=== PATIENT | female | born 1935 | race Caucasian/White ===

== ENCOUNTER → 2017-01-17 | Outpatient (CLI) | payer MEDICARE, OTHER ==
[~2017-01-17] MED LIST: ACET325T49 PO; AMLO10TA82 PO; AMLO5TAB2 PO; AMOX500C2 PO; ASP81CT PO; ATR20T PO; BISA5TAB8 PO; BNZ10T PO; BNZ20T PO; BNZ40T PO; BSC10SU PR; CFR250T PO; CLPD75T PO; DCS100C PO; FAMO-106 PO; GBPN300C PO; GLIP10TA13 PO; GLYB5TAB6 PO; HYDR-2890 PO; METO-272 PO; METO-333 PO; MTF500T PO; MTP25TSR PO; MULT1TAB53 PO; MV,C1TAB21 PO; NF-DICLTB PO; NIA500ERT PO; PENI250T4 PO; PNT40TEC PO
--- NOTE | 2017-01-30 09:32 | ECHOCARDIOGRAPHY REPORT ---
PROCEDURE PHYSICIAN: CANDIDO AVERY DATE OF PROCEDURE: 01/17/2017 TWO DIMENSIONAL ECHOCARDIOGRAM REPORT PRIMARY PHYSICIAN: Dr. Guillen OTHER PHYSICIAN: REFERRING PHYSICIAN: ORDERING PHYSICIAN: Dr. Avery INDICATION FOR THE PROCEDURE: 1. Coronary artery disease. 2. Hypertension. 3. Hyperlipidemia. MEASUREMENTS DERIVED VALUES LV DIAMETER (LAX) NORMALS NORMALS Diastolic 3.3 (3.6-5.2) Eject. Fract. (60%+/-6%) Systolic (2.3-3.9) Diastolic Vol. % Shortening (0.22-0.42) Systolic Vol. Aortic Root 3.1 IVS THICKNESS Diastolic 1.4 (0.6-1.1) LVPW THICKNESS Diastolic 1.4 (0.6-1.1) LA DIAMETER Systolic 4 (2.1-3.7) DESCRIPTION: Two-dimensional echocardiography shows mild to moderate concentric left ventricular hypertrophy. There is no pericardial effusion. There is thickening and sclerosis of the aortic valve leaflets. Aortic valve appears to be trileaflet. Mitral and tricuspid valve leaflets show good leaflet excursion. There is no significant pericardial effusion. Doppler imaging shows mild mitral and tricuspid regurgitation. Pulmonary artery systolic pressure is estimated to be 20 to 25 mmHg. There is moderate mitral annular calcification. There is no evidence of any significant mitral stenosis. Mitral inflow is suggestive of grade I diastolic dysfunction of the left ventricle. Peak pressure gradient across the aortic valve is approximately 12 mmHg with a mean gradient of approximately 7 mmHg. The aortic valve area is calculated to be approximately 1.7 sq cm. Inferior vena cava does not appear to be dilated and does seem to have inspiratory collapse. There is no evidence of any significant intracardiac shunt on this transthoracic echocardiographic study. CONCLUSIONS: 1. Well preserved global left ventricular systolic function with an ejection fraction of approximately 60%. 2. Mild to moderate concentric left ventricular hypertrophy. 3. Aortic valve sclerosis without significant aortic stenosis. 4. Mitral annular calcification without evidence of significant mitral stenosis. 5. Mitral and tricuspid regurgitation. 6. Pulmonary artery systolic pressure is estimated to be 20 to 25 mmHg. Job ID: [id number] Dictated Date: 01/29/2017 14:45:11 Cleaning Maid Date: 01/30/2017 09:26:39 / jessica
== END ==
LOC: CARD 13:26
PROVIDERS: ATTEND Internal Medicine Cardiovascular Disease
DX: I25.10 Atherosclerotic heart disease of native coronary artery without angina pectoris (principal); I65.23 Occlusion and stenosis of bilateral carotid arteries; E11.9 Type 2 diabetes mellitus without complications; I10 Essential (primary) hypertension; E78.4 Other hyperlipidemia
CPT/HCPCS: 93306

== ENCOUNTER 2019-08-22 11:11 | Emergency (ER) | payer MEDICARE, OTHER ==
[~2019-08-22] VITALS: Ht 154.9 cm; Wt 80.5 kg
[2019-08-22 11:39] LABS: BASOPHILS # (AUTO) 0.1 10^3/uL (0.0-0.1); BASOPHILS % (AUTO) 1 % (0-10); EOSINOPHILS # (AUTO) 0.2 10^3/uL (0.0-0.3); EOSINOPHILS % (AUTO) 3 % (0-10); HEMATOCRIT 39 % (35-52); HEMOGLOBIN 12.3 G/DL (11.5-16.0); LYMPHOCYTES # (AUTO) 1.7 X 10^3 (1.0-4.0); LYMPHOCYTES % (AUTO) 17 % (12-44); MEAN CORPUSCULAR HGB CONC 31 G/DL (32-36); MEAN CORPUSCULAR VOLUME 94 FL (80-99); MEAN PLATELET VOLUME 11.4 FL (7.4-10.4); MONOCYTES # (AUTO) 0.7 X 10^3 (0.0-1.0); MONOCYTES % (AUTO) 8 % (0-12); NEUTROPHILS % (AUTO) 72 % (42-75); PLATELET COUNT 285 10^3/uL (130-400); RED CELL DISTRIBUTION WIDTH 13.2 % (10.0-14.5); WHITE BLOOD COUNT 9.7 10^3/uL (4.3-11.0)
[2019-08-22 11:44] LABS: MEAN CORPUSCULAR HEMOGLOBIN 29 PG (25-34)
[2019-08-22] MEDS ORDERED: ASPIRIN 81 MG CHEW (CHILDREN'S ASA) PO ONE (11:45)
[2019-08-22 12:01] LABS: ALANINE AMINOTRANSFERASE 16 U/L (0-55); ALBUMIN 4.4 GM/DL (3.2-4.5); ALKALINE PHOSPHATASE 85 U/L (40-136); BILIRUBIN,TOTAL 0.4 MG/DL (0.1-1.0); BUN/CREATININE RATIO 14; CARBON DIOXIDE 19 MMOL/L (21-32); CHLORIDE 109 MMOL/L (98-107); GFR ESTIMATED 47; GLUCOSE 235 MG/DL (70-105); LIPASE 22 U/L (8-78); MAGNESIUM 1.6 MG/DL (1.6-2.4); POTASSIUM 4.9 MMOL/L (3.6-5.0); SODIUM 141 MMOL/L (135-145); TOTAL PROTEIN 7.8 GM/DL (6.4-8.2)
[2019-08-22] MEDS ORDERED: NS IV 500 ML 500 ML IV ONE (12:04)
--- NOTE | 2019-08-22 12:08 | ED Chest Pain ---
General Chief Complaint: Chest Pain Stated Complaint: CHEST PAIN Nursing Triage Note: ED staff assisted pt from POV via ED w/c to room #8 with c/o chest discomfort. Pt reports on 08/21/19 @ approx 1600 (postpranial) she developed meidal/Rt sided chest discomfort associated with SOA. Pt reports symptoms continued into this morning. Currently denies CP, but reports continued SOA. Nursing Sepsis Screen: No Definite Risk Source: patient, family (daughter) Exam Limitations: no limitations (RAF SALEEM) History of Present Illness Date Seen by Provider: Aug 22, 2019 Time Seen by Provider: 11:26 Initial Comments pt is an 84y.o F anticoagulated on Plavix and w/ PMH of HTN, non insulin dependent DMII, bypass, MD, GERD and hiatal hernia who presents to the ED w/ 3 days of SOB with exertion which improves with rest and 1 episode of Substernal, non-radiating chest pressure yesterday. pt is able to sleep flat w/o getting SOA. Pt further reports she her Chest pressure onset yesterday 2hrs after she had a chicken salad and resolved at 0400 today (08/22/2019) w/o any intervention. Has not had any CP since then. Pt was seen by Dr. Avery on 08/19/19 who scheduled her for an Echocardiogram on Sep 22. Pt was also seen by her PCP Dr. Guillen on 08/17/19 and had labs done which were unremarkable. Pt notes her hiatal hernia causes her to have reflux and stomach upset intermittently s/p eating. Pt denies ANY other sx at this time. Pt had an Echo on 01/17/2017 which was remarkable for mild-to mod concentric LVH and Mitral and tricuspid regurgitation, Pulmonary A. Systolic P was ~20-25mmHg at the time. She also had a Cardiac stress test on 02/21/[address] Avery for SOB she was experiencing the time which showed no evidence of MD or ischemia, her calculated EF was 59%, LV cavity size was WNL, and no regional wall motion abnormalities were identified. Timing/Duration: 1-2 days Severity/Quality: mild, pressure Location: substernal, epigastric Radiation: no radiation Activities at Onset: other (2 hrs after she ate a chicken salad) Prior CP/Workup: echocardiography, stress test Associated Symptoms: No abdominal pain, No diaphoresis, No edema, No fever/chills, No heartburn, No nausea/vomiting, No rash; shortness of breath (RAF SALEEM) Initial Comments Here with central chest pressure that she states started at the area of the epigastrium removed. She states it would come and go and felt like gas. Resolved now. Does have exertional dyspnea that has been long-standing and not significantly different today but seemed to be a little worse yesterday. Timing/Duration: changing over time, 1-2 days, other (wax and wanes and resolved at 4 AM) Severity/Quality: mild, pressure Location: epigastric Radiation: other (mid chest) ASA po LINDERMAN MACHINE OPERATOR: No NTG SL LINDERMAN MACHINE OPERATOR: No Associated Symptoms: shortness of breath (chronic with activity) (NORBERTO HARVEY MD) Allergies and Home Medications Allergies Coded Allergies: morphine (Verified Adverse Reaction, Unknown, Vomiting, 01/24/16) Home Medications Amlodipine Besylate 10 Mg Tablet, 10 MG PO DAILY, (Reported) Aspirin 81 Mg Chew, 81 MG PO DAILY, (Reported) Atorvastatin 20 Mg Tablet, 20 MG PO HS, (Reported) Benazepril Hcl 40 Mg Tablet, 40 MG PO DAILY, (Reported) Clopidogrel 75 Mg Tablet, 75 MG PO DAILY Prescribed by: RAJEEV VASQUEZ on 04/02/13 0906 Diclofenac/Misoprostol 1 Tab Tab, 75 MG PO BID, (Reported) Docusate Sodium 100 Mg Capsule, 100 MG PO TID, (Reported) Glipizide 10 Mg Tablet, 10 MG PO DAILY, (Reported) Hydrocodone Bit/Acetaminophen 1 Each Tablet, 10-325 MG PO BID PRN, (Reported) NEEDED FOR PAIN Do not exceed 4 GMS per 24 hour period. Metoprolol Succinate 50 Mg Tab.sr.24h, 50 MG PO BID, (Reported) Mv,Ca,Min/Iron Fum/Fa/Lyco/Lut 1 Each Tablet, 1 TAB PO DAILY, (Reported) Niacin 500 Mg Tablet.sa, 500 MG PO HS, (Reported) Pantoprazole Sod 40 Mg Tab, 40 MG PO DAILY, (Reported) Patient Home Medication List Home Medication List Reviewed: Yes (NORBERTO HARVEY MD) Review of Systems Review of Systems Constitutional: No chills, No diaphoresis, No fever, No weakness, No weight gain, No weight loss EENTM: No Symptoms Reported Respiratory: Denies Cough; SOA With Exertion; Denies SOA at Rest, Denies Stridor, Denies Wheezing Cardiovascular: Chest Pain (substernal, has resolved since onset yesterday), Edema; Denies Palpitations Gastrointestinal: Denies Abdomen Distended, Denies Abdominal Pain, Denies Constipated, Denies Diarrhea, Denies Nausea, Denies Vomiting Genitourinary: No Symptoms Reported Musculoskeletal: no symptoms reported Skin: No dryness, No pruritus, No rash Psychiatric/Neurological: No Symptoms Reported Endocrine: No Symptoms Reported Hematologic/Lymphatic: No Symptoms Reported (RAF SALEEM) All Other Systems Reviewed Negative Unless Noted: Yes (NORBERTO HARVEY MD) Past Ahwmogs-Jrbxlh-Wsxlbx Hx Past Med/Social Hx: Reviewed Nursing Past Med/Soc Hx (NORBERTO HARVEY MD) Patient Social History Alcohol Use: Denies Use Recreational Drug Use: No Smoking Status: Never a Smoker 2nd Hand Smoke Exposure: No Recent Foreign Travel: No Contact w/Someone Who Travel: No Recent Infectious Disease Expo: No Recent Hopitalizations: Yes (sinus infection) ([facility] S[facility]) Immunizations Up To Date Tetanus Booster (TDap): More than 5yrs Date of Pneumonia Vaccine: Mar 31, 2012 Date of Influenza Vaccine: Jul 14, 2012 (RAF SALE[facility]) Past Medical History Surgeries: Yes (KIDNEY STONE BASKET REMOVAL, knee/shoulder replaced, bilat carpal tunne) Cardiac, Coronary Stent Respiratory: No Cardiac: Yes Hypertension Neurological: Yes (PARESTHESIAS IN HANDS AND FEET) Gastrointestinal: No Gastroesophageal Reflux Musculoskeletal: Yes (CHRONIC BACK/NECK/RIGHT ANKLE/GENERALIZED PAIN-TO HAVE C- SPINE SURG. 12/29) Chronic Back Pain Endocrine: Yes Diabetes, Non-Insulin dep Are Your Blood Sugars Over 250: No HEENT: Yes Hearing Impairment: Hard of Hearing Cancer: No Psychosocial: No Integumentary: No Blood Disorders: No Adverse Reaction/Blood Tranf: No ([facility] S[facility]) Family Medical History Reviewed Nursing Family Hx (NORBERTO HARVEY MD) Physical Exam Vital Signs Vital Signs - First Documented (NORBERTO HARVEY MD) Vital Signs Capillary Refill : Less Than 3 Seconds ([facility]) Height, Weight, BMI Height: 5'1.00" Weight: 176lbs. 0.0oz. 79.073826jj; 33.00 BMI Method:Stated General Appearance: No Apparent Distress, WD/WN, Obese, Other (pt is non- abulatory; uses a scooter/wheelchair) HEENT: PERRL/EOMI, TMs Normal, Normal ENT Inspection, Pharynx Normal Neck: Full Range of Motion, Normal Inspection, Non Tender, Supple; No Carotid Bruit, No JVD Respiratory: Chest Non Tender, Lungs Clear, Normal Breath Sounds, No Accessory Muscle Use, No Respiratory Distress; No Crackles, No Wheezing Cardiovascular: No Edema, No Gallop, No JVD, No Murmur, Normal Peripheral Pulses, Systolic Murmur (over 4th ICS & [place] ) Gastrointestinal: Normal Bowel Sounds, No Organomegaly, No Pulsatile Mass, Non Tender, Soft Extremity: Normal Inspection, Normal Range of Motion, Non Tender, No Calf Tenderness, No Pedal Edema Neurologic/Psychiatric: Alert, Oriented x3, Normal Mood/Affect Skin: Normal Color, Warm/Dry; No Rash (no rash concerning for shingles noted on her back or shoulders) Lymphatic: No Adenopathy ([facility]) General Appearance: No Apparent Distress, WD/WN Respiratory: Lungs Clear, Normal Breath Sounds Cardiovascular: Regular Rate, Rhythm, Systolic Murmur (over 4th ICS & [place] ) Extremity: Normal Range of Motion, Non Tender, Pedal Edema (trace to the mid tibia bilateral) Neurologic/Psychiatric: Alert, Oriented x3 Skin: Normal Color, Warm/Dry (NORBERTO HARVEY MD) Progress/Results/Core Measures Results/Orders Lab Results Laboratory Tests Test 08/22/19 11:29 08/22/19 12:00 08/22/19 13:04 Range/Units White Blood Count 9.7 4.3-11.0 10^3/uL Red Blood Count 4.17 L 4.35-5.85 10^6/uL Hemoglobin 12.3 11.5-16.0 G/DL Hematocrit 39 35-52 % Mean Corpuscular Volume 94 80-99 FL Mean Corpuscular Hemoglobin 29 25-34 PG Mean Corpuscular Hemoglobin Concent 31 L 32-36 G/DL Red Cell Distribution Width 13.2 10.0-14.5 % Platelet Count 285 130-400 10^3/uL Mean Platelet Volume 11.4 H 7.4-10.4 FL Neutrophils (%) (Auto) 72 42-75 % Lymphocytes (%) (Auto) 17 12-44 % Monocytes (%) (Auto) 8 0-12 % Eosinophils (%) (Auto) 3 0-10 % Basophils (%) (Auto) 1 0-10 % Neutrophils # (Auto) 7.0 1.8-7.8 X 10^3 Lymphocytes # (Auto) 1.7 1.0-4.0 X 10^3 Monocytes # (Auto) 0.7 0.0-1.0 X 10^3 Eosinophils # (Auto) 0.2 0.0-0.3 10^3/uL Basophils # (Auto) 0.1 0.0-0.1 10^3/uL Sodium Level 141 135-145 MMOL/L Potassium Level 4.9 3.6-5.0 MMOL/L Chloride Level 109 H 98-107 MMOL/L Carbon Dioxide Level 19 L 21-32 MMOL/L Anion Gap 13 5-14 MMOL/L Blood Urea Nitrogen 15 7-18 MG/DL Creatinine 1.10 0.60-1.30 MG/DL Estimat Glomerular Filtration Rate 47 BUN/Creatinine Ratio 14 Glucose Level 235 H 70-105 MG/DL Calcium Level 10.0 8.5-10.1 MG/DL Corrected Calcium 9.7 8.5-10.1 MG/DL Magnesium Level 1.6 1.6-2.4 MG/DL Total Bilirubin 0.4 0.1-1.0 MG/DL Aspartate Amino Transf (AST/SGOT) 20 5-34 U/L Alanine Aminotransferase (ALT/SGPT) 16 0-55 U/L Alkaline Phosphatase 85 40-136 U/L Myoglobin 50.8 10.0-92.0 NG/ML Troponin I < 0.028 < 0.028 <0.028 NG/ML B-Type Natriuretic Peptide 561.3 H <100.0 PG/ML Total Protein 7.8 6.4-8.2 GM/DL Albumin 4.4 3.2-4.5 GM/DL Lipase 22 8-78 U/L Prothrombin Time 13.9 12.2-14.7 SEC INR Comment 1.0 0.8-1.4 Activated Partial Thromboplast Time 24 24-35 SEC (NORBERTO HARVEY MD) My Orders Orders - NORBERTO HARVEY MD Aspirin Chewable Tablet (Baby Aspirin Ch (08/22/19 11:45) Ns Iv 500 Ml (Sodium Chloride 0.9%) (08/22/19 12:04) Troponin I (08/22/19 12:58) (NORBERTO HARVEY MD) Medications Given in ED Current Medications Medications Dose Ordered Sig/Merlyn Route Start Time Stop Time Status Last Admin Dose Admin Aspirin 324 mg ONCE ONCE PO 08/22/19 11:45 08/22/19 11:46 DC 08/22/19 11:45 324 MG Sodium Chloride 500 ml @ 0 mls/hr Q0M ONCE IV 08/22/19 12:04 08/22/19 12:06 DC 08/22/19 12:53 0 MLS/HR (NORBERTO HARVEY MD) Vital Signs/I&O 08/22/19 08/22/19 11:13 11:13 Temp 37.0 Pulse 80 Resp 20 B/P (MAP) 185/91 (122) Pulse Ox 94 O2 Delivery Room Air Room Air (NORBERTO HARVEY MD) Blood Pressure Mean: 122 POS Progress Progress Note : Time: 11:26 Progress Note Seen and Evaluated. DDX include GERD exacerbation, irritation from hiatal hernia, MD, pancreatitis, CHF, Pulmonary arterial HTN, Pulmonary edema. Will do full MD workup including CXR, EKG, Troponin, Lipase, BNP, coag studies, CBC, and CMP. Will start IVF NS 500mL and give ASA. Will monitor pt. 1240: Revaluated pt. Labs were unremarkable except for elevated BNP of 500. CXR showed cardiomegaly but was unremarkable for any acute cardiopulmonary process. Discussed plan for discharge if her repeat Troponin comes back negative. pt and family understand and agree with plan. (RAF SALEEM) Progress Note : Progress Note I have seen and evaluated the patient and agree with above except as indicated. I directed the plan of care. Chest pain protocol initiated. We'll go ahead and give small bolus of fluid pending labs. 1310: Repeat troponin ordered to confirm negative on 2 separate samples. Patient is still pain free. I did discuss with the patient and family regarding the need for home oxygen which is very likely. They will follow up with her primary care doctor this week for home oxygen evaluation. I believe that she would significantly benefit from home oxygen as she does have dyspnea on exertion and that is long-standing and I believe she get slightly hypoxic during this timeframe's. I will send a copy of the chart to Dr. Guillen's office. Monitor patient. 1350: Repeat troponin negative. Patient still pain free. Discharged home with return precautions. Patient and family verbalize understanding instructions and agreement with plan. (NORBERTO HARVEY MD) Initial ECG Impression Date: Aug 22, 2019 Initial ECG Impression Time: 11:16 Initial ECG Rate: 82 ([facility] S[facility]) Comment Sinus rhythm with PAC. Left axis deviation. No evidence of ST elevation MD. Similar to previous of 03/31/13. Interpreted by me. (NORBERTO HARVEY MD) Diagnostic Imaging Diagonstic Imaging: Xray Plain Films/CT/US/NM/MRI: chest Comments NAME: MARIAJO[facility] REC#: [id number] PT STATUS: REG ER : 1935 PHYSICIAN: TRICE RAIN APRN ADMIT DATE: 08/22/19/ER POSDate of Exam:08/22/19 CHEST 1 VIEW, AP/PA ONLY EXAMINATION: Portable erect AP chest at 11:40 a.m. INDICATION: Chest pain. FINDINGS: The heart is enlarged and the heart does seem more prominent than noted on the prior exam of 03/31/2013. The lungs are clear. There is no evidence for failure, pneumonia, or for a pleural effusion to indicate an acute abnormality. The mediastinum is not widened. The osseous structures are intact. The sternotomy wires and surgical clips, the total shoulder prosthesis on the right, and the postsurgical changes involving the cervical spine seen previously are again evident and no different. The right-sided PICC line noted on the prior study has been removed. IMPRESSION: There is cardiomegaly and evidence of prior cardiac surgery, but there is no sign of an acute cardiopulmonary abnormality. Dictated on workstation # [id number] Dict: 08/22/19 1214 Trans: 08/22/19 1222 [id number] Interpreted by: BIA WHEATLEY MD Electronically signed by: (RAF S[facility]) Reviewed: Reviewed by Me (NORBERTO HARVEY MD) Departure Impression Primary Impression: Chest pain Qualified Codes: R07.9 - Chest pain, unspecified Additional Impression: Dyspnea on exertion Disposition: HOME, SELF-CARE Condition: Improved Departure-Patient Inst. Referrals: MEEK GUILLEN MD (PCP/Family) Primary Care Physician Patient Instructions: Chest Pain (DC), Shortness of Breath (Dyspnea) (DC) Add. Discharge Instructions: All discharge instructions reviewed with patient and/or family. Voiced understanding. Keep appointment with Dr. Avery as scheduled. Follow-up with Dr. Delgado's offic e this week for recheck and further evaluation and to evaluate your needs for home oxygen. Call their office on Saturday. Does not matter which provider that you are evaluated by at his office but you do need to be seen this week. Return for worse pain, fever, vomiting, weakness, breathing problems, return of chest pain or other concerns as needed. Copy Copies To 1: MEEK GUILLEN MD, [facility] Aug 22, 2019 12:08 NORBERTO NAYLOR MD Aug 22, 2019 13:18 POS
--- NOTE | 2019-08-22 12:23 | Diagnostic Imaging Report ---
EXAMINATION: Portable erect AP chest at 11:40 a.m. INDICATION: Chest pain. FINDINGS: The heart is enlarged and the heart does seem more prominent than noted on the prior exam of 03/31/2013. The lungs are clear. There is no evidence for failure, pneumonia, or for a pleural effusion to indicate an acute abnormality. The mediastinum is not widened. The osseous structures are intact. The sternotomy wires and surgical clips, the total shoulder prosthesis on the right, and the postsurgical changes involving the cervical spine seen previously are again evident and no different. The right-sided PICC line noted on the prior study has been removed. IMPRESSION: There is cardiomegaly and evidence of prior cardiac surgery, but there is no sign of an acute cardiopulmonary abnormality. Dictated by: Dictated on workstation # [id number]
[2019-08-22 12:25] LABS: PROTHROMBIN TIME PATIENT 13.9 SEC (12.2-14.7)
[2019-08-22 14:20] VITALS: BP 137/75
== END 2019-08-22 14:28 | disposition home or self-care (01) ==
LOC: EDUNIT# 11:11 → ER 11:12
DX: R07.9 Chest pain, unspecified (principal); R06.09 Other forms of dyspnea; E11.9 Type 2 diabetes mellitus without complications; I10 Essential (primary) hypertension; I25.2 Old myocardial infarction; K21.9 Gastro-esophageal reflux disease without esophagitis; Z95.1 Presence of aortocoronary bypass graft; Z79.02 Long term (current) use of antithrombotics/antiplatelets; Z88.5 Allergy status to narcotic agent; Z79.82 Long term (current) use of aspirin; Z95.5 Presence of coronary angioplasty implant and graft
CPT/HCPCS: 36415; 71045; 80053; 83690; 83735; 83874; 83880; 84484; 85025; 85610; 85730; 93005; 93041

== ENCOUNTER → 2020-02-16 | Outpatient (CLI) | payer MEDICARE, OTHER ==
[~2020-02-16] VITALS: Ht 155 cm; Wt 80.0 kg
[~2020-02-16] MED LIST changes: +REGADENOSON 0.4 MG/5 ML SYR (LEXISCAN) IV ONE
[2020-02-16] MEDS: CATHETER FLUSH 10 ML SYR IV PRN ×2 (08:37→09:37)
[2020-02-16 09:36] VITALS: BP 174/87
--- NOTE | 2020-02-16 15:10 | STRESS TEST ---
DATE OF SERVICE: 02/16/2020 RESTING AND POST REGADENOSON TECHNETIUM-99M TETROFOSMIN SPECT CT IMAGING ORDERING PHYSICIAN: Dr. Avery. PRIMARY PHYSICIAN: Dr. Guillen. CLINICAL DIAGNOSES: Coronary artery disease, shortness of breath and diabetes. Baseline images were carried out after injection of 10.77 mCi of technetium-99m Tetrofosmin. This was followed by 0.4 mg of Regadenoson and 30.4 mCi of technetium-99m Tetrofosmin for stress imaging. The electrocardiogram showed sinus rhythm with some ventricular and supraventricular ectopy. There also appeared to be brief runs of atrial fibrillation with relatively controlled ventricular response. The electrocardiogram did not change significantly with the Regadenoson infusion. Review of images at rest and following stress indicate a basal inferior perfusion defect that appears fixed. There appears to be a localized basal hypokinesis to akinesis. Left ventricular ejection fraction is calculated to be 69%. Left ventricular end diastolic volume is 59 mL. TID is absent (0.9). CONCLUSIONS: 1. This study suggests a small basal inferior infarction without ischemia. 2. Brief runs of paroxysmal atrial fibrillation were seen during the study. 3. Normal regional wall motion. 4. Normal global left ventricular systolic function with a calculated ejection fraction of 69%. Job ID: [id number] DocumentID: [id number] Dictated Date: 02/16/2020 14:35:31 Clearance Center Manager Date: 02/16/2020 15:09:08 Dictated By: CANDIDO AVERY MD, MA, FACP, FACC,
== END ==
LOC: CARD 08:19
PROVIDERS: ATTEND Internal Medicine Cardiovascular Disease
DX: E78.5 Hyperlipidemia, unspecified (principal); I10 Essential (primary) hypertension; E11.9 Type 2 diabetes mellitus without complications; I77.89 Other specified disorders of arteries and arterioles; I25.10 Atherosclerotic heart disease of native coronary artery without angina pectoris; R06.02 Shortness of breath; M54.9 Dorsalgia, unspecified; G89.29 Other chronic pain
CPT/HCPCS: 78452; 93017

== ENCOUNTER → 2020-02-19 | Outpatient (CLI) | payer MEDICARE, OTHER ==
[~2020-02-19] MED LIST changes: -REGADENOSON 0.4 MG/5 ML SYR (LEXISCAN) IV ONE
== END ==
LOC: CARD 10:28
PROVIDERS: ATTEND Nurse Practitioner Family
DX: I49.5 Sick sinus syndrome (principal); R06.02 Shortness of breath
CPT/HCPCS: 93225; 93226

== ENCOUNTER → 2021-02-21 | Outpatient (CLI) | payer MEDICARE, OTHER ==
--- NOTE | 2021-02-21 15:51 | Diagnostic Imaging Report ---
INDICATION: Cough and shortness of breath. EXAMINATION: PA and lateral chest. FINDINGS: There is cardiomegaly with pulmonary vascular congestion. The lungs are clear. There are no effusions or pneumothoraces. There are postop changes from CABG surgery. IMPRESSION: Congestive heart failure. Dictated by: Dictated on workstation # [id number]
== END ==
LOC: RAD 14:41
PROVIDERS: ATTEND Nurse Practitioner Family
DX: I50.9 Heart failure, unspecified (principal)
CPT/HCPCS: 71046

== ENCOUNTER 2021-08-26 10:01 | Inpatient (IN) | payer MEDICARE, OTHER ==
[~2021-08-26] VITALS: Ht 157.5 cm; Wt 73.1 kg
[2021-08-26] VITALS (8 sets, daily range): BP systolic 116–137; BP diastolic 67–79
[2021-08-26] MEDS ORDERED: ASPIRIN 81 MG CHEW (CHILDREN'S ASA) PO ONE (10:15)
[2021-08-26 10:42] LABS: BILIRUBIN,URINE NEGATIVE (NEGATIVE); CLARITY,URINE CLEAR; COLOR,URINE YELLOW; GLUCOSE, URINE (UA) NEGATIVE (NEGATIVE); KETONES,URINE NEGATIVE (NEGATIVE); LEUKOCYTE ESTERASE ,URINE NEGATIVE (NEGATIVE); NITRITE,URINE NEGATIVE (NEGATIVE); PROTEIN,URINE 1+ (NEGATIVE)
[2021-08-26 10:44] LABS: BASOPHILS % (AUTO) 1 % (0-10); EOSINOPHILS # (AUTO) 0.3 10^3/uL (0.0-0.3); EOSINOPHILS % (AUTO) 4 % (0-10); HEMATOCRIT 42 % (35-52); HEMOGLOBIN 13.2 g/dL (11.5-16.0); LYMPHOCYTES # (AUTO) 1.2 10^3/uL (1.0-4.0); LYMPHOCYTES % (AUTO) 16 % (12-44); MEAN CORPUSCULAR HEMOGLOBIN 30 pg (25-34); MEAN CORPUSCULAR HGB CONC 32 g/dL (32-36); MEAN CORPUSCULAR VOLUME 96 fL (80-99); MEAN PLATELET VOLUME 11.5 fL (9.0-12.2); MONOCYTES % (AUTO) 14 % (0-12); NEUTROPHILS # (AUTO) 4.7 10^3/uL (1.8-7.8); NEUTROPHILS % (AUTO) 66 % (42-75); PLATELET COUNT 220 10^3/uL (130-400); WHITE BLOOD COUNT 7.1 10^3/uL (4.3-11.0)
[2021-08-26 10:55] LABS: ALBUMIN 3.9 GM/DL (3.2-4.5)
[2021-08-26 10:56] LABS: CHLORIDE 103 MMOL/L (98-107); SODIUM 138 MMOL/L (135-145)
[2021-08-26 10:57] LABS: AMYLASE 39 U/L (25-125); CALCIUM 9.6 MG/DL (8.5-10.1); FIBRIN DEGRADATION PRODUCTS 0.46 UG/ML (0.00-0.49); INR 1.2 (0.8-1.4); PROTHROMBIN TIME PATIENT 15.9 SEC (12.2-14.7)
[2021-08-26 10:58] LABS: GLUCOSE 183 MG/DL (70-105); TOTAL PROTEIN 7.3 GM/DL (6.4-8.2)
[2021-08-26 10:59] LABS: CARBON DIOXIDE 23 MMOL/L (21-32)
[2021-08-26 10:59] LABS: BACTERIA,URINE TRACE /HPF
[2021-08-26 11:00] LABS: BILIRUBIN,TOTAL 0.2 MG/DL (0.1-1.0)
[2021-08-26 11:01] LABS: ALKALINE PHOSPHATASE 64 U/L (40-136)
[2021-08-26 11:02] LABS: CREATININE SERUM 1.12 MG/DL (0.60-1.30); GFR ESTIMATED 46
[2021-08-26 11:03] LABS: BUN/CREATININE RATIO 20; POTASSIUM 5.2 MMOL/L (3.6-5.0)
[2021-08-26 11:05] LABS: ALANINE AMINOTRANSFERASE 8 U/L (0-55); MAGNESIUM 1.6 MG/DL (1.6-2.4)
[2021-08-26 11:06] LABS: CREATINE KINASE 21 U/L (29-168); LIPASE 25 U/L (8-78)
--- NOTE | 2021-08-26 11:10 | ED General ---
General Chief Complaint: Respiratory Problems Stated Complaint: CHEST TIGHTNESS,COUGH,SOA,CONGESTION Nursing Triage Note: PT TO ED VIA WHEELCHAIR WITH DAUGHTER. PT C/O SOB/COUGH FOR ABOUT A WEEK. PT REPORTS HX PNEUMONIA. PT WEARS HOME O2 Source of Information: Patient (LIMITED HISTORIAN), Family (DAUGHTER GIVES MOST INFORMATION) History of Present Illness Date Seen by Provider: Aug 26, 2021 Time Seen by Provider: 10:10 Initial Comments PT ARRIVES VIA POV FROM HOME WITH DAUGHTER--PT LIVES WITH DAUGHTER PT HAS HAD COUGH/CONGESTION, CHEST TIGHTNESS, AND SHORTNESS OF BREATH FOR A WEEK SYMPTOMS GRADUALLY GETTING WORSE THROUGHOUT THE WEEK NO FEVER NO NAUSEA/VOMITING/DIARRHEA NO SWELLING IN LEGS/FEET NO PALPITATIONS NO DIZZINESS OR SYNCOPE PT HAS NOT TAKEN ANYTHING FOR SYMPTOMS AT ANY TIME SYMPTOMS NO WORSE TODAY HAS NOT SOUGHT CARE UNTIL TODAY ( SATURDAY) HAS HISTORY OF CHF, CAD AND PNEUMONIA PT WEARS HOME O2 AT 2 1/2-3 L/NC CONTINUOUSLY PT HAD TONE AND TONE COVID-19 VACCINE NO KNOWN SICK CONTACTS PCP: DR. ROSA SNAKE CHARMER: DR. GUERRA Allergies and Home Medications Allergies Coded Allergies: morphine (Verified Adverse Reaction, Unknown, Vomiting, 01/24/16) Patient Home Medication List Home Medication List Reviewed: Yes Amlodipine Besylate (Norvasc Tablet) 10 Mg Tablet, 10 MG PO DAILY, (Reported) Entered as Reported by: ASHLYN SCHULZ on 03/31/13 1059 Aspirin (Aspirin 81 Mg Chew Tab) 81 Mg Chew, 81 MG PO DAILY, (Reported) Entered as Reported by: RODOLFO STAHL on 10/16/11 1444 Atorvastatin (Lipitor 20MG) 20 Mg Tablet, 20 MG PO HS, (Reported) Entered as Reported by: RODOLFO STAHL on 10/16/11 1447 Benazepril Hcl (Lotensin 40 Mg) 40 Mg Tablet, 40 MG PO DAILY, (Reported) Entered as Reported by: ASHLYN SCHULZ on 03/31/13 1059 Clopidogrel (Plavix) 75 Mg Tablet, 75 MG PO DAILY Prescribed by: RAJEEV VASQUEZ on 04/02/13 0906 Diclofenac/Misoprostol (Arthrotec 75 Mg) 1 Tab Tab, 75 MG PO BID, (Reported) Entered as Reported by: RODOLFO STAHL on 10/16/11 1440 Docusate Sodium (Colace) 100 Mg Capsule, 100 MG PO TID, (Reported) Entered as Reported by: ASHLYN SCHULZ on 03/31/13 1100 Glipizide (Glipizide) 10 Mg Tablet, 10 MG PO DAILY, (Reported) Entered as Reported by: BOB MILLIGAN on 11/02/11 1131 Hydrocodone Bit/Acetaminophen (Hydrocodon-Acetaminophn 10-325) 1 Each Tablet, 10-325 MG PO BID PRN, (Reported) Entered as Reported by: BOB MILLIGAN on 11/02/11 1131 Metoprolol Succinate (Metoprolol Succinate Xl 50 Mg) 50 Mg Tab.sr.24h, 50 MG PO BID, (Reported) Entered as Reported by: QUYNH VAZQUEZ on 06/22/12 1146 Mv,Ca,Min/Iron Fum/Fa/Lyco/Lut (Complete Multi Tablet) 1 Each Tablet, 1 TAB PO DAILY, (Reported) Entered as Reported by: ASHLYN SCHULZ on 03/31/13 1059 Niacin (Niaspan) 500 Mg Tablet.sa, 500 MG PO HS, (Reported) Entered as Reported by: RODOLFO STAHL on 10/16/11 1446 Pantoprazole Sod (Protonix Tab) 40 Mg Tab, 40 MG PO DAILY, (Reported) Entered as Reported by: BOB MILLIGAN on 11/02/11 1131 Review of Systems Review of Systems Constitutional: No fever EENTM: no symptoms reported Respiratory: see HPI, cough, short of breath Cardiovascular: see HPI, chest pain Gastrointestinal: no symptoms reported Genitourinary: no symptoms reported Musculoskeletal: no symptoms reported Skin: no symptoms reported Psychiatric/Neurological: No Symptoms Reported Hematologic/Lymphatic: No Symptoms Reported Immunological/Allergic: no symptoms reported Past Oxqrpez-Ltwxal-Isafwh Hx Patient Social History Tobacco Use?: No Substance use?: No Alcohol Use?: No Immunizations Up To Date Tetanus Booster (TDap): More than 5yrs Influenza Vaccine Up-to-Date: Yes; Up-to-Date First/Initial COVID19 Vaccinat: SUMMER 2020 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: [email or web address] Past Medical History Surgery/Hospitalization HX: CHF, DM, BYPASS, STENTS, HX OF PNEUMONIA Surgeries: Yes (KIDNEY STONE BASKET REMOVAL, knee/shoulder replaced, bilat carpal tunne) Cardiac, CABG, Coronary Stent, Joint Replacement, Orthopedic, Renal Respiratory: Yes (HOME O2 AT 2 1/2-3 L/NC CONTINOUSLY) Pneumonia Cardiac: Yes (CHF) Chronic Edema/Swelling, Coronary Artery Disease, High Cholesterol, Hypertension Neurological: Yes (PARESTHESIAS IN HANDS AND FEET) 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: 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 Genitourinary: Yes Kidney Stones Gastrointestinal: Yes Gastroesophageal Reflux Musculoskeletal: Yes (CHRONIC BACK/NECK/RIGHT ANKLE/GENERALIZED PAIN;MINIMALLY AMBULATORY) Arthritis, Chronic Back Pain Endocrine: Yes (OBESITY) Diabetes, Non-Insulin dep HEENT: Yes Hearing Impairment: Hard of Hearing Cancer: No Psychosocial: No Integumentary: No Blood Disorders: No Adverse Reaction/Blood Tranf: No Family Medical History PAST SURGICAL HISTORY: -CARDIAC CATHS WITH STENT X 1 IN 2013 TO RCA VEIN GRAFT -CABG -KIDNEY STONE BASKET REMOVAL -BILATERAL CARPAL TUNNEL SURGERY -KNEE REPLACEMENT -SHOULDER REPLACEMENT Physical Exam Vital Signs Vital Signs - First Documented 08/26/21 10:39 FiO2 96 Capillary Refill : Less Than 3 Seconds Height, Weight, BMI Height: 5'1.00" Weight: 176lbs. 0.0oz. [id number]; 33.00 BMI Method:Stated General Appearance: WD/WN, Obese, Other (MILDLY DYSPNEIC ON ARRIVAL, BUT PT IS ABLE TO TALK NON-STOP IN FULL SENTENCES. 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 Norm as Tested Focused Exam Lactate Level 08/26/21 10:23: Lactic Acid Level 1.66 Lactic Acid Level Laboratory Tests Test 08/26/21 10:23 Lactic Acid Level 1.66 MMOL/L (0.50-2.00) Progress/Results/Core Measures Suspected Sepsis SIRS Temperature: Pulse: 84 Respiratory Rate: 22 Laboratory Tests 08/26/21 10:23: White Blood Count 7.1 Blood Pressure 169 /131 Mean: 106 08/26/21 10:23: Lactic Acid Level 1.66 Laboratory Tests 08/26/21 10:23: Creatinine 1.12, INR Comment 1.2, Platelet Count 220, Total Bilirubin 0.2 Results/Orders Lab Results Laboratory Tests Test 08/26/21 10:23 08/26/21 10:30 Range/Units White Blood Count 7.1 4.3-11.0 10^3/uL Red Blood Count 4.34 3.80-5.11 10^6/uL Hemoglobin 13.2 11.5-16.0 g/dL Hematocrit 42 35-52 % Mean Corpuscular Volume 96 80-99 fL Mean Corpuscular Hemoglobin 30 25-34 pg Mean Corpuscular Hemoglobin Concent 32 32-36 g/dL Red Cell Distribution Width 13.5 10.0-14.5 % Platelet Count 220 130-400 10^3/uL Mean Platelet Volume 11.5 9.0-12.2 fL Immature Granulocyte % (Auto) 0 % Neutrophils (%) (Auto) 66 42-75 % Lymphocytes (%) (Auto) 16 12-44 % Monocytes (%) (Auto) 14 H 0-12 % Eosinophils (%) (Auto) 4 0-10 % Basophils (%) (Auto) 1 0-10 % Neutrophils # (Auto) 4.7 1.8-7.8 10^3/uL Lymphocytes # (Auto) 1.2 1.0-4.0 10^3/uL Monocytes # (Auto) 1.0 0.0-1.0 10^3/uL Eosinophils # (Auto) 0.3 0.0-0.3 10^3/uL Basophils # (Auto) 0.0 0.0-0.1 10^3/uL Immature Granulocyte # (Auto) 0.0 0.0-0.1 10^3/uL Erythrocyte Sedimentation Rate 20 0-30 MM/HR Prothrombin Time 15.9 H 12.2-14.7 SEC INR Comment 1.2 0.8-1.4 Activated Partial Thromboplast Time 29 24-35 SEC D-Dimer 0.46 0.00-0.49 UG/ML Sodium Level 138 135-145 MMOL/L Potassium Level 5.2 H 3.6-5.0 MMOL/L Chloride Level 103 98-107 MMOL/L Carbon Dioxide Level 23 21-32 MMOL/L Anion Gap 12 5-14 MMOL/L Blood Urea Nitrogen 22 H 7-18 MG/DL Creatinine 1.12 0.60-1.30 MG/DL Estimat Glomerular Filtration Rate 46 BUN/Creatinine Ratio 20 Glucose Level 183 H 70-105 MG/DL Lactic Acid Level 1.66 0.50-2.00 MMOL/L Calcium Level 9.6 8.5-10.1 MG/DL Corrected Calcium 9.7 8.5-10.1 MG/DL Magnesium Level 1.6 1.6-2.4 MG/DL Total Bilirubin 0.2 0.1-1.0 MG/DL Aspartate Amino Transf (AST/SGOT) 19 5-34 U/L Alanine Aminotransferase (ALT/SGPT) 8 0-55 U/L Alkaline Phosphatase 64 40-136 U/L Total Creatine Kinase 21 L 29-168 U/L Creatine Kinase MB 1.2 <6.6 NG/ML Myoglobin 61.7 10.0-92.0 NG/ML Troponin I < 0.028 <0.028 NG/ML C-Reactive Protein High Sensitivity 0.27 0.00-0.50 MG/DL B-Type Natriuretic Peptide 259.5 H <100.0 PG/ML Total Protein 7.3 6.4-8.2 GM/DL Albumin 3.9 3.2-4.5 GM/DL Amylase Level 39 25-125 U/L Lipase 25 8-78 U/L Procalcitonin 0.03 <0.10 NG/ML Influenza Type A (RT-PCR) Not Detected Not Detecte Influenza Type B (RT-PCR) Not Detected Not Detecte SARS-CoV-2 RNA (RT-PCR) Not Detected Not Detecte Urine Color YELLOW Urine Clarity CLEAR Urine pH 6.0 5-9 Urine Specific [place] 1.020 1.016-1.022 Urine Protein 1+ H NEGATIVE Urine Glucose (UA) NEGATIVE NEGATIVE Urine Ketones NEGATIVE NEGATIVE Urine Nitrite NEGATIVE NEGATIVE Urine Bilirubin NEGATIVE NEGATIVE Urine Urobilinogen 0.2 < = 1.0 MG/DL Urine Leukocyte Esterase NEGATIVE NEGATIVE Urine RBC (Auto) TRACE-I H NEGATIVE Urine RBC 5-10 H /HPF Urine WBC 2-5 /HPF Urine Squamous Epithelial Cells 5-10 /HPF Urine Crystals NONE /LPF Urine Bacteria TRACE /HPF Urine Casts NONE /LPF Urine Mucus NEGATIVE /LPF Urine Culture Indicated CULTURE PENDING My Orders Orders - LORIN ROMERO DO Ed Iv/Invasive Line Start (08/26/21 10:09) Ekg Tracing (08/26/21 10:09) Catheter(Urinary) Insert & Ass 03,15 (08/26/21 10:09) O2 (08/26/21 10:09) Monitor-Rhythm Ecg Trace Only (08/26/21 10:09) Amylase (08/26/21 10:09) BNP (08/26/21 10:09) Cbc With Automated Diff (08/26/21 10:09) Comprehensive Metabolic Panel (08/26/21 10:09) Creatine Kinase (08/26/21 10:09) Creatine Kinase Mb (08/26/21 10:09) Hs C Reactive Protein (08/26/21 10:09) Fibrin Degradation Products (08/26/21 10:09) Lactic Acid Analyzer (08/26/21 10:09) Lipase (08/26/21 10:09) Magnesium (08/26/21 10:09) Procalcitonin (Pct) (08/26/21 10:09) Protime With Inr (08/26/21 10:09) Partial Thromboplastin Time (08/26/21 10:09) Ua Culture If Indicated (08/26/21 10:09) Blood Culture (08/26/21 10:09) Influenza A And B By Pcr (08/26/21 10:09) Erythrocyte Sedimentation Rate (08/26/21 10:09) Myoglobin Serum (08/26/21 10:09) Troponin I (08/26/21 10:09) Chest 1 View, Ap/Pa Only (08/26/21 10:09) Covid 19 Inhouse Test (08/26/21 10:09) Urine Culture (08/26/21 10:09) Vital Signs Adult Sepsis Patie Q15M (08/26/21 10:09) Remove Rings In Anticipation O (08/26/21 10:09) Aspirin Chewable Tablet (Baby Aspirin Ch (08/26/21 10:15) Furosemide Injection (Lasix Injection) (08/26/21 11:45) Nitroglycerin Ointment (Nitrobid Ointme (08/26/21 11:45) Medications Given in ED Current Medications Medications Dose Ordered Sig/[place]lyn Route Start Time Stop Time Status Last Admin Dose Admin Aspirin 324 mg ONCE ONCE PO 08/26/21 10:15 08/26/21 10:16 DC 08/26/21 10:34 324 MG Vital Signs/I&O 08/26/21 08/26/21 08/26/21 08/26/21 10:15 10:15 10:39 10:52 Temp 36.7 36.7 Pulse 84 71 Resp 22 20 B/P (MAP) 169/131 (144) 137/90 Pulse Ox 96 96 O2 Delivery Nasal Cannula Nasal Cannula Nasal Cannula Nasal Cannula O2 Flow Rate 2.00 2.00 2.00 2.00 FiO2 96 Capillary Refill : Less Than 3 Seconds Blood Pressure Mean: 106 Progress Note : Progress Note PLACED IN ISOLATION ROOM PPE WORN AT ALL TIMES COVID-19 TESTING PERFORMED GIVEN ASPIRIN GAVE LASIX PLACED 1/2 " NITROPASTE UNEVENTFUL ER STAY ECG Initial ECG Impression Date: Aug 26, 2021 Initial ECG Impression Time: 10:18 Initial ECG Rate: 82 Initial ECG Rhythm: Normal Sinus Diagnostic Imaging Comments CXR--PER RADIOLOGIST REPORT AT 1134 Correlation is made with prior chest 08/22/2019. Changes of median sternotomy are noted. Heart is enlarged but stable. There is some linear atelectasis left midlung. Some mild central congestion but no overt failure. No effusion or pneumothorax is seen. Postoperative changes in the cervical spine and right shoulder noted. IMPRESSION: Cardiomegaly and central congestion. No overt failure is detected. Reviewed: Reviewed by Me Departure Communication (Admissions) 1143--SPOKE WITH DR. LI, HOSPITALIST COVERING FOR DR. ROSA'S PATIENTS. ACCEPTS PT FOR ADMIT Impression Primary Impression: CHF (congestive heart failure) Additional Impressions: Chest pain HX OF CAD WITH CABG ADN STENT HTN (hypertension) NIDDM Disposition: ADMITTED INPATIENT Condition: Stable Admissions Decision to Admit Reason: Admit from ER (General) Decision to Admit/Date: Aug 26, 2021 Time/Decision to Admit Time: 11:45 Departure-Patient Inst. Referrals: ROMAINE ROSA MD (PCP/Family) Primary Care Physician LORIN ROMERO DO Aug 26, 2021 11:10
[2021-08-26 11:13] LABS: ERYTHROCYTE SEDIMENTATION RATE 20 MM/HR (0-30)
[2021-08-26 11:14] LABS: CREATINE KINASE MB 1.2 NG/ML (<6.6)
--- NOTE | 2021-08-26 11:18 | Diagnostic Imaging Report ---
INDICATION: Chest pain and shortness of breath. TIME OF EXAM: 10:56 AM Correlation is made with prior chest 08/22/2019. Changes of median sternotomy are noted. Heart is enlarged but stable. There is some linear atelectasis left midlung. Some mild central congestion but no overt failure. No effusion or pneumothorax is seen. Postoperative changes in the cervical spine and right shoulder noted. IMPRESSION: Cardiomegaly and central congestion. No overt failure is detected. Dictated by: Dictated on workstation # [id number]
[2021-08-26] MEDS ORDERED: FUROSEMIDE 40 MG/4 ML INJ (LASIX) IVP ONE (11:45)
[2021-08-26] MEDS ORDERED: NITROGLYCERIN 2% OINT 1 GM UNIT DOSE PACKET TOP ONE (11:45)
[2021-08-26] MEDS ORDERED: fentaNYL INJ 100 MCG/2 ML AMP IV PRN (13:15)
[2021-08-26] MEDS ORDERED: ONDANSETRON 4 MG/2 ML (SDV) Z0FRAN IV PRN (13:15)
[2021-08-26] MEDS ORDERED: PATIENT MAY USE OWN MEDS, ALL MC SCH (13:15)
[2021-08-26] MEDS ORDERED: RT-ALBUTEROL SULF 2.5 MG/3 ML PRE-MIX VIAL INH PRN (14:30)
[2021-08-26] MEDS: RT-ALBUTEROL SULF 2.5 MG/3 ML PRE-MIX VIAL INH SCH ×2 (15:15→21:29)
[2021-08-26] MEDS: inSUlin ASPART (NovoLOG) 1 UNIT/0.01 ML (CHARGE PER UNIT) SC SCH ×2 (16:24→21:07)
[2021-08-26] MEDS ORDERED: APIX2.5T PO (17:16)
[2021-08-26] MEDS ORDERED: ECONAZOLE 1% TOP (17:21)
[2021-08-26] MEDS ORDERED: LOVA20TA2 PO (17:24)
[2021-08-26] MEDS ORDERED: FAMO20TA3 PO (17:25)
[2021-08-26] MEDS: DOCUSATE SODIUM 100 MG (COLACE) CAP PO SCH (20:41)
[2021-08-26] MEDS: APIXABAN 2.5 MG (ELIQUIS) TABLET PO SCH (20:41)
[2021-08-26] MEDS: SIMvastatin 10 MG (ZOCOR) TAB PO SCH (20:41)
[2021-08-26] MEDS: FAMOTIDINE 20 MG (PEPCID) TABLET PO SCH (20:42)
[2021-08-26] MEDS ORDERED: SALINE NASAL SPRAY (OCEAN) 45 ML BTL PRN (21:15)
[2021-08-27 00:28] VITALS: BP 132/72
[2021-08-27] MEDS: RT-ALBUTEROL SULF 2.5 MG/3 ML PRE-MIX VIAL INH SCH ×4 (03:56→21:04)
[2021-08-27 04:28] VITALS: BP 127/77
[2021-08-27 05:29] LABS: BASOPHILS # (AUTO) 0.1 10^3/uL (0.0-0.1); BASOPHILS % (AUTO) 1 % (0-10); EOSINOPHILS # (AUTO) 0.1 10^3/uL (0.0-0.3); EOSINOPHILS % (AUTO) 2 % (0-10); HEMATOCRIT 42 % (35-52); HEMOGLOBIN 13.2 g/dL (11.5-16.0); LYMPHOCYTES % (AUTO) 14 % (12-44); MEAN CORPUSCULAR HEMOGLOBIN 30 pg (25-34); MEAN CORPUSCULAR HGB CONC 31 g/dL (32-36); MEAN CORPUSCULAR VOLUME 97 fL (80-99); MEAN PLATELET VOLUME 11.3 fL (9.0-12.2); MONOCYTES # (AUTO) 0.9 10^3/uL (0.0-1.0); MONOCYTES % (AUTO) 12 % (0-12); NEUTROPHILS # (AUTO) 5.1 10^3/uL (1.8-7.8); NEUTROPHILS % (AUTO) 71 % (42-75); PLATELET COUNT 217 10^3/uL (130-400); WHITE BLOOD COUNT 7.1 10^3/uL (4.3-11.0)
[2021-08-27 05:44] LABS: CALCIUM 9.8 MG/DL (8.5-10.1)
[2021-08-27 05:49] LABS: CREATININE SERUM 1.21 MG/DL (0.60-1.30)
[2021-08-27] MEDS: PANTOPRAZOLE 40 MG (PROTONIX) TAB PO SCH (06:32)
[2021-08-27] MEDS: inSUlin ASPART (NovoLOG) 1 UNIT/0.01 ML (CHARGE PER UNIT) SC SCH ×4 (07:02→21:35)
--- NOTE | 2021-08-27 07:08 | Diagnostic Imaging Report ---
INDICATION: Congestive heart failure. Comparison is made with the prior study from 08/26/2021. FINDINGS: Patient is slightly rotated on today's examination. There is no significant change in size of the cardiac silhouette or mediastinal contours. There are chronic interstitial changes within the lungs. There are discoid opacities suggestive of atelectasis. There is no overt pulmonary edema evident. There is no significant effusion or pneumothorax. There are prior surgical changes involving the cervical spine. There has been prior right shoulder arthroplasty. Severe left shoulder arthritic changes noted. IMPRESSION: Stable appearance of the chest. Interstitial changes and discoid atelectasis are present. Heart size is stable. There is no overt pulmonary edema evident. Dictated by: Dictated on workstation # [id number]
[2021-08-27 08:03] VITALS: BP 121/73
[2021-08-27] MEDS: glipiZIDE XL 10 MG (GLUCOTROL XL) TAB PO SCH (08:27)
[2021-08-27] MEDS: FAMOTIDINE 20 MG (PEPCID) TABLET PO SCH ×2 (08:27→21:34)
[2021-08-27] MEDS: amLODIPine 10 MG (NORVASC) TAB PO SCH (08:28)
[2021-08-27] MEDS: APIXABAN 2.5 MG (ELIQUIS) TABLET PO SCH ×2 (08:28→21:33)
[2021-08-27] MEDS: lisINopril 40 MG (PRINIVIL) TABLET PO SCH (08:28)
[2021-08-27] MEDS: DOCUSATE SODIUM 100 MG (COLACE) CAP PO SCH ×3 (08:28→21:33)
[2021-08-27] MEDS: ASPIRIN 81 MG CHEW (CHILDREN'S ASA) PO SCH (08:28)
[2021-08-27] MEDS ORDERED: ASPIRIN E.C. 81 MG (ECOTRIN) TAB PO SCH (09:00)
[2021-08-27] MEDS ORDERED: polyethylene glycoL POWDER 17 GM (MIRALAX) PACK PO PRN (10:45)
[2021-08-27] MEDS ORDERED: polyethylene glycoL POWDER 17 GM (MIRALAX) PACK PO ONE (10:45)
[2021-08-27] MEDS ORDERED: SENNA W/DOCUSATE (SENOKOT S) TABLET PO ONE (10:45)
[2021-08-27] MEDS ORDERED: FUROSEMIDE 40 MG/4 ML INJ (LASIX) IVP ONE (10:45)
--- NOTE | 2021-08-27 10:49 | Consultation-Cardiology ---
HPI-Cardiology Cardiology Consultation Date of Consultation 08/27/21 Date of Admission Time Seen by Provider: 10:43 Indication: Shortness of breath HPI 86-year-old lady with history of coronary artery disease, paroxysmal atrial fibrillation, hypertension. Has been having cough, mild increased dyspnea, using oxygen at home but noticing increasing shortness of breath with minimal exertion. Reporting occasional feeling tightness in her chest. No palpitation. No syncope or near syncopal episodes. Patient came into the emergency room and noted to have hyperkalemia and elevated BNP level. On my evaluation she is reporting improvement, back to her baseline, using oxygen. Still having mild cough. Home Medications & Allergies Allergies: Coded Allergies: morphine (Verified Adverse Reaction, Unknown, Vomiting, 01/24/16) Home Medication List Reviewed: Yes YUS-Htctih-Jrvsgk Hx Patient Social History Marital Status: Employed/Student: retired Smoking Status: Never a Smoker 2nd Hand Smoke Exposure: No Recent Hopitalizations: Yes (sinus infection) Have you traveled recently?: No Alcohol Use?: No Immunizations Up To Date Tetanus Booster (TDap): More than 5yrs Date of Pneumonia Vaccine: Mar 31, 2012 Date of Influenza Vaccine: Jul 11, 2021 Past Medical History Discussed below Family Medical History Family Medical Hx Noncontributory Review of Systems-General Review of Systems Constitutional: see HPI; No fever EENTM: see HPI, no symptoms reported Respiratory: see HPI, cough, short of breath Cardiovascular: see HPI, chest pain Gastrointestinal: no symptoms reported, see HPI Genitourinary: no symptoms reported, see HPI Musculoskeletal: no symptoms reported, see HPI Skin: no symptoms reported, see HPI Psychiatric/Neurological: No Symptoms Reported, See HPI Reviewed Test Results Reviewed Test Results Lab Laboratory Tests Test 08/26/21 13:50 08/26/21 14:00 08/26/21 16:08 08/26/21 20:22 Range/Units Troponin I < 0.028 <0.028 NG/ML Glucometer 108 104 90 70-110 MG/DL Test 08/27/21 05:12 08/27/21 06:30 08/27/21 10:26 Range/Units White Blood Count 7.1 4.3-11.0 10^3/uL Red Blood Count 4.38 3.80-5.11 10^6/uL Hemoglobin 13.2 11.5-16.0 g/dL Hematocrit 42 35-52 % Mean Corpuscular Volume 97 80-99 fL Mean Corpuscular Hemoglobin 30 25-34 pg Mean Corpuscular Hemoglobin Concent 31 L 32-36 g/dL Red Cell Distribution Width 13.5 10.0-14.5 % Platelet Count 217 130-400 10^3/uL Mean Platelet Volume 11.3 9.0-12.2 fL Immature Granulocyte % (Auto) 1 % Neutrophils (%) (Auto) 71 42-75 % Lymphocytes (%) (Auto) 14 12-44 % Monocytes (%) (Auto) 12 0-12 % Eosinophils (%) (Auto) 2 0-10 % Basophils (%) (Auto) 1 0-10 % Neutrophils # (Auto) 5.1 1.8-7.8 10^3/uL Lymphocytes # (Auto) 1.0 1.0-4.0 10^3/uL Monocytes # (Auto) 0.9 0.0-1.0 10^3/uL Eosinophils # (Auto) 0.1 0.0-0.3 10^3/uL Basophils # (Auto) 0.1 0.0-0.1 10^3/uL Immature Granulocyte # (Auto) 0.0 0.0-0.1 10^3/uL Sodium Level 137 135-145 MMOL/L Potassium Level 5.0 3.6-5.0 MMOL/L Chloride Level 100 98-107 MMOL/L Carbon Dioxide Level 24 21-32 MMOL/L Anion Gap 13 5-14 MMOL/L Blood Urea Nitrogen 21 H 7-18 MG/DL Creatinine 1.21 0.60-1.30 MG/DL Estimat Glomerular Filtration Rate 42 BUN/Creatinine Ratio 17 Glucose Level 183 H 70-105 MG/DL Calcium Level 9.8 8.5-10.1 MG/DL B-Type Natriuretic Peptide 246.4 H <100.0 PG/ML Triglycerides Level 118 <150 MG/DL Cholesterol Level 135 < 200 MG/DL LDL Cholesterol Direct 77 1-129 MG/DL VLDL Cholesterol 24 5-40 MG/DL HDL Cholesterol 51 40-60 MG/DL Glucometer 162 H 163 H 70-110 MG/DL Physical Exam Physical Exam Vital Signs Vital Signs - First Documented 08/26/21 10:39 FiO2 96 Capillary Refill : Less Than 3 Seconds Height, Weight, BMI Height: 5'1.00" Weight: 176lbs. 0.0oz. 79.678767pa; 30.43 BMI Method:Stated General Appearance: WD/WN, Obese, Other (MILDLY DYSPNEIC ON ARRIVAL, BUT PT IS ABLE TO TALK NON-STOP IN FULL SENTENCES. 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 Started on diuretics. Monitor tolerance and response. 2D echo done on August 27, 2021 showing normal left ventricular size with mild hypokinesia, moderate LVH, left atrium is in the upper normal. Aortic valve sclerosis. Ejection fraction 50% Congestive heart failure, acute on chronic left ventricular systolic and diastolic dysfunction. Responded to diuretics. Continue to monitor Hyperkalemia, better today. Continue to monitor Coronary artery disease, history of CABG x3 done by Dr. Castelan in the remote past, cardiac catheterization was done in March 2013 reported severe beaver coronary artery disease with patent VARELA to the LAD, patent vein graft to the obtuse marginal, severely diseased vein graft to the distal right coronary artery has successful stent using Promus element 3.5 x 12 mm with good results. Stress test done in February 2020 showing basal myocardial infarction without ischemia with local basal inferior wall hypokinesia to akinesia Hypertension, restart medication and monitor blood pressure Hyperlipidemia, monitor lipids Sinus node dysfunction, paroxysmal atrial fibrillation, had a Holter in February 2020 reporting predominant atrial fibrillation with average rate 71 bpm. Maintained on Eliquis COPD, oxygen dependent. Continue to monitor Chronic kidney disease stage II-III. Monitor renal function Mild bilateral carotid stenosis, ultrasound was done in February 2019. Diabetes mellitus, maintained on glipizide CARMELA PERES MD Aug 27, 2021 10:49
--- NOTE | 2021-08-27 11:34 | History & Physical-Hospitalist ---
History of Present Illness HPI/Chief Complaint Racquel Rock is an 86 year old female with PMH HTN, CAD, T2DM, HLD, GERD, CKD, HFpEF, who presented with shortness of breath. She reports that she has been feeling weak. She has had a cough. She denies any chest pain. She is not having abdominal pain, nausea, vomiting, or diarrhea. She has been having constipation. She normally wears 2-1/2 to 3 L of oxygen continuously. Source: patient Exam Limitations: no limitations Date Seen 08/27/21 Time Seen by a Provider: 10:25 Attending Physician Fabricio Li MD PCP Vivian Aviles MD Referring Physician Date of Admission Aug 26, 2021 at 11:45 Home Medications & Allergies Home Medications Reviewed patient Home Medication Reconciliation performed by pharmacy medication reconciliations hvac residential service technician and/or nursing. Patients Allergies have been reviewed. Allergies Allergies Coded Allergies morphine (Verified Adverse Reaction, Unknown, Vomiting, 01/24/16) Past Uetjyav-Nddfyp-Xvmaui Hx Patient Social History Marrital Status: Employed/Student: retired Tobacco Use?: No Smoking Status: Never a Smoker Substance use?: No Alcohol Use?: No Pt feels they are or have been: No Immunizations Up To Date Date of Influenza Vaccine: Jul 11, 2021 First/Initial COVID19 Vaccinat: SUMMER 2020 Tetanus Booster (TDap): Less Than 5 Years Date of Pneumonia Vaccine: Mar 31, 2012 Current Status Advance Directives: Unable to obtain Advance Directive Location: might have a copy of one Communicates: Verbally Primary Language: German Preferred Spoken Language: German Is interpretation needed?: No Sensory deficits: Vision impairment, Hearing impairment Implanted or Applied Medical D: None Past Medical History Surgeries: Cardiac, CABG, Coronary Stent, Joint Replacement, Orthopedic, Renal Pneumonia Chronic Edema/Swelling, Coronary Artery Disease, High Cholesterol, Hypertension Neuropathy 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 Kidney Stones Gastroesophageal Reflux Arthritis, Chronic Back Pain Diabetes, Non-Insulin dep Hearing Impairment: Hard of Hearing Blood Disorders: No Adverse Reaction/Blood Tranf: No Family Medical History No Pertinent Family Hx PAST SURGICAL HISTORY: -CARDIAC CATHS WITH STENT X 1 IN 2013 TO RCA VEIN GRAFT -CABG -KIDNEY STONE BASKET REMOVAL -BILATERAL CARPAL TUNNEL SURGERY -KNEE REPLACEMENT -SHOULDER REPLACEMENT Review of Systems Constitutional: weakness EENTM: no symptoms reported Respiratory: cough, short of breath Cardiovascular: no symptoms reported Gastrointestinal: constipation Genitourinary: no symptoms reported Musculoskeletal: no symptoms reported Skin: no symptoms reported Psychiatric/Neurological: No Symptoms Reported Physical Exam Physical Exam Vital Signs Vital Signs - First Documented 08/26/21 10:39 FiO2 96 Capillary Refill : Less Than 3 Seconds Height, Weight, BMI Height: 5'1.00" Weight: 176lbs. 0.0oz. [id number]; 30.43 BMI Method:Stated General Appearance: No Apparent Distress, Chronically ill, Obese HEENT: PERRL/EOMI, Pharynx Normal Respiratory: Lungs Clear, Normal Breath Sounds, No Respiratory Distress Cardiovascular: Regular Rate, Rhythm, No Edema, No Murmur Gastrointestinal: Normal Bowel Sounds, Non Tender, Soft Extremity: Normal Inspection, Non Tender, No Pedal Edema Neurologic/Psychiatric: Alert, Normal Mood/Affect Skin: Normal Color, Warm/Dry Results Results/Procedures Labs Laboratory Tests 08/26/21 10:23 08/27/21 05:12 Patient resulted labs reviewed. Imaging: Reviewed Imaging Report Assessment/Plan Admission Diagnosis Acute on chronic respiratory failure with hypoxia Admission Status: Observation Assessment and Plan Acute on chronic respiratory failure with hypoxia HFpEF Fluid overload Requiring slightly increased oxygen from baseline Chest xray without evidence of overt failure BNP mildly elevated Echo with normal EF, grade I diastolic dysfunction Cardiology consulted Started on Lasix HTN CAD T2DM HLD GERD CKD3 AFib Obesity Continue home meds DVT prophylaxis: already receiving therapeutic anticoagulation Diagnosis/Problems Diagnosis/Problems (1) Acute on chronic respiratory failure with hypoxia Status: Acute (2) Fluid overload Status: Acute (3) (HFpEF) heart failure with preserved ejection fraction Status: Acute Qualifiers: Heart failure chronicity: acute on chronic Qualified Codes: I50.33 - Acute on chronic diastolic (congestive) heart failure (4) Obesity Status: Chronic (5) HTN (hypertension) Status: Chronic (6) CAD (coronary artery disease) Status: Chronic (7) NIDDM Status: Chronic FABRICIO LI MD Aug 27, 2021 11:34
[2021-08-27 12:00] VITALS: BP 114/72
[2021-08-27 16:00] VITALS: BP 121/55
[2021-08-27 19:43] VITALS: BP 88/52
[2021-08-27] MEDS: SIMvastatin 10 MG (ZOCOR) TAB PO SCH (21:33)
[2021-08-27] MEDS: SENNA W/DOCUSATE (SENOKOT S) TABLET PO SCH (21:34)
[2021-08-28] VITALS (7 sets, daily range): BP systolic 68–132; BP diastolic 40–66
[2021-08-28] MEDS: RT-ALBUTEROL SULF 2.5 MG/3 ML PRE-MIX VIAL INH SCH ×4 (03:09→21:00)
[2021-08-28] MEDS: PANTOPRAZOLE 40 MG (PROTONIX) TAB PO SCH (06:10)
[2021-08-28] MEDS: inSUlin ASPART (NovoLOG) 1 UNIT/0.01 ML (CHARGE PER UNIT) SC SCH ×4 (06:32→20:41)
--- NOTE | 2021-08-28 07:11 | Progress Note ---
Subjective Subjective Date Seen by Provider: Aug 28, 2021 Time Seen by Provider: 07:00 Patient states that she feels better this morning. Her back is hurting fairly bad at the moment, but other than that she has no pain. She has not had a bowel movement in upwards of a week and has not passed much gas. Her breathing is good this morning and she feels as though her chest is less tight. Review of Systems General: No Chills, No Night Sweats Pulmonary: No Dyspnea, No Cough Gastrointestinal: No: Nausea, Vomiting Musculoskeletal: back pain Objective Exam Vital Signs Vital Signs Date Time Temp Pulse Resp B/P (MAP) Pulse Ox O2 Delivery O2 Flow Rate FiO2 08/28/21 04:34 36.9 101 24 86/53 (64) 91 Nasal Cannula 4.00 08/28/21 03:09 95 Nasal Cannula 4.00 08/28/21 01:00 96 08/28/21 00:45 36.8 115 24 132/66 (88) 91 Nasal Cannula 4.00 08/27/21 21:06 93 Nasal Cannula 4.00 08/27/21 20:20 93 Nasal Cannula 4.00 96 08/27/21 19:43 37.2 109 28 88/52 (64) 90 Nasal Cannula 4.00 08/27/21 19:00 120 08/27/21 16:00 37.3 108 26 121/55 (77) 91 Nasal Cannula 4.00 08/27/21 15:18 89 Nasal Cannula 4.00 08/27/21 12:38 99 08/27/21 12:00 37.5 106 20 114/72 (86) 93 Nasal Cannula 4.00 08/27/21 09:50 90 Nasal Cannula 4.00 08/27/21 08:03 37.0 98 28 121/73 (89) 92 Nasal Cannula 4.00 08/27/21 08:00 91 Nasal Cannula 4.00 96 I & O 08/28/21 07:00 Intake Total 770 ml Output Total 425 ml Balance 345 ml General Appearance: No Apparent Distress, Chronically ill, Obese Eyes: Bilateral Eye Normal Inspection, Bilateral Eye PERRL, Bilateral Eye EOMI HEENT: PERRL/EOMI, Pharynx Normal Neck: Normal Inspection Respiratory: Lungs Clear, Normal Breath Sounds, No Respiratory Distress Cardiovascular: No Edema, No Murmur, Tachycardia Gastrointestinal: Normal Bowel Sounds, Non Tender, Soft Back: No CVA Tenderness Extremity: Normal Inspection, Non Tender, No Pedal Edema Neurologic/Psychiatric: Alert, Normal Mood/Affect Skin: Normal Color, Warm/Dry Lymphatic: No Adenopathy Results Lab Laboratory Tests 08/27/21 10:26: Glucometer 163H 08/27/21 16:27: Glucometer 181H 08/27/21 20:57: Glucometer 150H 08/28/21 06:10: Glucometer 128H Microbiology 08/26/21 Blood Culture - Preliminary, Resulted No growth 08/26/21 Urine Culture - Final, Complete NO GROWTH Assessment/Plan Assessment/Plan Assessment and Plan ACUTE ON CHRONIC RESPIRATORY FAILURE W/HYPOXIA HFpEF FLUID OVERLOAD CONTINUE LASIX INCREASED O2 REQ. FROM BASELINE NO OVERT FAILURE ON CXR NORMAL EF, GRADE 1 DIASTOLIC DYSFUNCTION ON ECHO CARDIOLOGY ON BOARD HTN CAD T2DM HLD GERD CKD3 AFib Continue home meds DVT prophylaxis: already receiving therapeutic anticoagulation Supervisory-Addendum Brief Verification & Attestation Participated in pt care: history, MDM, physical Personally performed: exam, history, MDM, supervision of care Care discussed with: Medical Student Procedures: n/a Results interpretation: Verified all documentation REVIEWED STUDENT NOTE - AGREE WITH SUBJECTIVE, ROS, EXAM AND A/P SEE MY DOCUMENTATION FOR DETAILS. PT COMPLAINING OF PAIN IN HER BUTTOCK AND BACK TODAY, WOULD LIKE TO GO HOME IF POSSIBLE. SHE REPORTS THAT HER BREATHING IS BETTER THAN ON ADMISSION ACUTE RESPIRATORY FAILURE ACUTE RENAL FAILURE HYPOXIA FLUID OVERLOAD HYPERTENSION CORONARY ARTERY DISEASE WITH HX OF INTERVENTION DIABETES MELLITUS HYPERLIPIDEMIA CHRONIC ATRIAL FIBRILLATION ON ANTICOAGULATION ACUTE RESPIRATORY FAILURE - WITH FLUID OVERLOAD AND HYPOXIA - IMPROVED WITH DIURESIS, MONITOR SYMPTOMS, CONTINUE WITH CHRONIC OXYGEN THERAPY AT HOME 2-3 LITERS. ACUTE RENAL FAILURE - MONITOR LABS HYPERTENSION - PT ON HOME REGIMEN - CARDIOLOGY INVOLVED MONITOR PRESSURE CLOSELY. CORONARY ARTERY DISEASE WITH HX OF INTERVENTION DIABETES MELLITUS - PT ON HOME REGIMEN - MONITOR FSBS HYPERLIPIDEMIA CHRONIC ATRIAL FIBRILLATION ON ANTICOAGULATION KATEY SANDERS Aug 28, 2021 07:10 ROMAINE ROSA MD Aug 30, 2021 09:23
[2021-08-28] MEDS: SENNA W/DOCUSATE (SENOKOT S) TABLET PO SCH ×2 (08:25→20:19)
[2021-08-28] MEDS: DOCUSATE SODIUM 100 MG (COLACE) CAP PO SCH ×3 (08:25→20:19)
[2021-08-28] MEDS: ASPIRIN 81 MG CHEW (CHILDREN'S ASA) PO SCH (08:26)
[2021-08-28] MEDS: FAMOTIDINE 20 MG (PEPCID) TABLET PO SCH (08:26)
[2021-08-28] MEDS: APIXABAN 2.5 MG (ELIQUIS) TABLET PO SCH ×2 (08:26→20:19)
[2021-08-28] MEDS: glipiZIDE XL 10 MG (GLUCOTROL XL) TAB PO SCH (08:26)
--- NOTE | 2021-08-28 08:35 | Progress Note - Cardiology ---
Cardiology SOAP Progress Note Subjective: Sitting up on the side of the bed. She feels her SOB has improved from yesterday C/O dry, hacky cough No c/o CP or palpitations Objective: I&O/Vital Signs 08/28/21 08/29/21 08/29/21 08/29/21 23:30 00:38 02:14 04:00 Temp 36.2 36.3 Pulse 93 103 118 Resp 22 24 B/P (MAP) 129/57 (81) 128/63 (84) Pulse Ox 93 90 93 O2 Delivery Nasal Cannula Nasal Cannula Nasal Cannula O2 Flow Rate 3.00 3.00 3.00 08/29/21 08/29/21 08/29/21 08/29/21 07:00 07:08 07:17 08:00 Temp 36.3 Pulse 110 115 Pulse Ox 94 94 O2 Delivery Nasal Cannula Nasal Cannula O2 Flow Rate 4.00 4.00 FiO2 36 08/29/21 08:34 Temp 36.4 Pulse 118 Resp 20 B/P (MAP) 115/56 (75) Pulse Ox 92 O2 Delivery Nasal Cannula O2 Flow Rate 4.00 08/29/21 00:00 Intake Total 1150 ml Output Total 50 ml Balance 1100 ml Weight (Pounds): 176 Weight (Ounces): 0.0 Weight (Calculated Kilograms): 79.964136 Constitutional: AAO x 3, well-developed, well-nourished Respiratory: No accessory muscle use, No respiratory distress; chest expansion is symmetric, chest is bilaterally symmetric, lungs clear to auscultation Cardiovascular: regular rate-rhythm; No JVD; S1 and S2, systolic murmur Gastrointestional: No tender; soft, round, audible bowel sounds Extremities: no lower extremity edema bilateral Neurologic/Psychiatric: grossly intact (moves all extremities) Skin: No rash on exposed areas, No ulcerations on exposed areas Results/Procedures: Labs Laboratory Tests 08/28/21 11:44: Glucometer 159H 08/28/21 15:24: Glucometer 223H 08/28/21 20:28: Glucometer 128H 08/29/21 06:10: Glucometer 98 08/29/21 08:35: Sodium Level 138, Potassium Level 4.8, Chloride Level 104, Carbon Dioxide Level 22, Anion Gap 12, Blood Urea Nitrogen 39H, Creatinine 2.80#H, Estimat Glomerular Filtration Rate 16, BUN/Creatinine Ratio 14, Glucose Level 98, Calcium Level 8.3L, Magnesium Level 1.7 Microbiology 08/26/21 Blood Culture - Preliminary, Resulted No growth 08/26/21 Urine Culture - Final, Complete NO GROWTH A/P: Assessment: Acute on chronic diastolic CHF - clinically improved Constipation - management per medical services Back pain - management per medical services SSS and PAF: - Holter of 02/25/20: predominant rhythm is A Fib, avg heart rate 71 bpm, isolated and coupled PVCs PVC burden 1.2%), no significant fede Chronic exertional shortness of breath - stable Valvular dz: - Echocardiogram of Sep 16, 2019 showed LVEF 55-65%. Grade 1 diastolic dysfunction. LA mod dilated. Mitral valve with severly calcified annulus, consistent with mild stenosis with mild regurg. AoV with mild stenosis. Mild to mod regurg. RVSP 43 mmHg Normal TSH : - 02/19/20: 1.42 (normal) CAD with a history of coronary artery bypass surgery. - Last cardiac catheterization was on 03/31/2013. There was severe [place] coronary artery disease. There was a widely patent left internal mammary artery graft to the distal left anterior descending. There was a widely patent saphenous vein graft to an obtuse marginal of the left circumflex. It was severely diseased saphenous vein graft to distal right coronary. It had 99% ostial/proximal stenosis which was successfully stented with Promus element 3.5 x 12 mm stent with good results. - MPI of 02/16/20: basal myocardial infarction w/o ischemia and with local basal inf hypokinesis to akinesis Hypertension: - essential, with a component of white coat, currently controlled HLD: - well controlled on therapy with atorvastatin, being followed by her PCP. Chronic limitation of ambulation: - due to chronic R foot eversion following trauma in , and chronic joint and back discomfort. 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 Aviles this morning regarding plan of care Management of constipation per medical services Management of back pain per medical services RAJEEV VASQUEZ Aug 28, 2021 08:35
[2021-08-28] MEDS: amLODIPine 10 MG (NORVASC) TAB PO SCH (09:19)
[2021-08-28] MEDS: lisINopril 40 MG (PRINIVIL) TABLET PO SCH (09:20)
[2021-08-28] MEDS ORDERED: ACET-93 PO (09:22)
--- NOTE | 2021-08-28 09:24 | D/C HH Face to Face Order ---
D/C Face to Face Orders Instructions for Patient Via [facility], Patient Instructions/FollowUp: 1 wk [facility] Physician to follow Patient: bison Discharge Diet for Home: Regular Diet Patient Problems: hypertension, diabetes, weakness, back pain Patient Data-Allergies,Ht & Wt Patient Allergies: Coded Allergies: morphine (Verified Adverse Reaction, Unknown, Vomiting, 01/24/16) Height (Feet): 5 Height (Inches): 1.00 Weight (Pounds): 176 Weight (Ounces): 0.0 Home Health Need/Face to Face Date of Face to Face: Aug 28, 2021 Clinical Findings: Generalized weakness and fatigue, Shortness of breath, Unsteady gait I have seen Pt [id number]: Yes Discharged To: Home Diagnosis/Conditions: hypertension, diabetes, weakness, back pain Patient is Homebound due to: Ivana fall risk due to instabilty, Muscle weakness, Shortness of breath/distress Homebound Status Due to the above stated illness, injury or surgical procedure (medical condition or diagnosis) and associated clinical findings, the patient is homebound because of his/her inability to leave home except with aid of a supportive device and/or person AND leaving the home requires a considerable and taxing effort or is medically contraindicated. Pt req the following assistanc: Walker (or wheelchair) Home Health Nursing Orders Home Health Services Order: Nursing Services, Physical Therapy-Evaluate & Treat Home Health Infusion Therapy Line Start Date: Aug 26, 2021 Therapy Orders Therapy Orders: PT to assess for OT Therapy Specific Orders: Eval assistive deivces, Increase strength/endurance Certify Stmt I certify that this patient is under my care and that I, a nurse practitioner or a physician; a workers compensation claims assistant working with me, had a face to face encounter that - meets the physician face to face encounter requirements with this patient as dated. Medication List: Active Scripts Active Acetaminophen 500 Mg Tablet 1,000 Mg PO TID Reported Acid Partner (FAMOTIDINE) (Famotidine) 20 Mg Tablet 20 Mg PO BID Lovastatin 20 Mg Tablet 20 Mg PO HS [econazole 1%] 1 Applic TOP PRN Eliquis (Apixaban) 2.5 Mg Tablet 2.5 Mg PO BID Colace (Docusate Sodium) 100 Mg Capsule 100 Mg PO TID Norvasc Tablet (Amlodipine Besylate) 10 Mg Tablet 10 Mg PO DAILY Lotensin 40 Mg (Benazepril HCl) 40 Mg Tablet 40 Mg PO DAILY Metoprolol Succinate Xl 50 Mg (Metoprolol Succinate) 50 Mg Tab.sr.24h 100 Mg PO BID Protonix Tab (Pantoprazole Sod) 40 Mg Tab 40 Mg PO DAILY Glipizide 10 Mg Tablet 10 Mg PO DAILY Aspirin 81 Mg Chew Tab (Aspirin) 81 Mg Chew 81 Mg PO DAILY Lab results: Laboratory Tests Test 08/27/21 10:26 08/27/21 16:27 08/27/21 20:57 08/28/21 06:10 Range/Units Glucometer 163 H 181 H 150 H 128 H 70-110 MG/DL My orders: Orders - ROMAINE ROSA MD Acetaminophen Tablet (Tylenol Tablet) (08/28/21 09:30) Bisacodyl Suppository (Dulcolax Supposit (08/28/21 09:30) Attending Discharge Inpt/Inobs (08/28/21 09:20) [facility] Dischage (08/28/21 09:20) ROMAINE ROSA MD Aug 28, 2021 09:24
[2021-08-28] MEDS ORDERED: BISACODYL 10 MG SUPP (DULCOLAX) PR ONE (09:30)
[2021-08-28] MEDS ORDERED: ACETAMINOPHEN 500 MG TAB (TYLENOL) PO ONE (09:30)
--- NOTE | 2021-08-28 09:48 | Progress Note - Cardiology ---
Cardiology SOAP Progress Note Subjective: Shortness of breath has improved to usual baseline No cp or palp or syncope Chronic low back pain present Reports constipation No n/v/d Objective: I&O/Vital Signs 08/28/21 08/28/21 08/28/21 08/28/21 00:45 01:00 03:09 04:34 Temp 36.8 36.9 Pulse 115 96 101 Resp 24 24 B/P (MAP) 132/66 (88) 86/53 (64) Pulse Ox 91 95 91 O2 Delivery Nasal Cannula Nasal Cannula Nasal Cannula O2 Flow Rate 4.00 4.00 4.00 08/28/21 08/28/21 08/28/21 08/28/21 07:00 08:00 08:19 08:22 Temp 36.1 Pulse 116 110 Resp 21 B/P (MAP) 96/58 (71) Pulse Ox 90 93 O2 Delivery Nasal Cannula Nasal Cannula O2 Flow Rate 4.00 4.00 3.00 08/28/21 00:00 Intake Total 770 ml Output Total 400 ml Balance 370 ml Weight (Pounds): 176 Weight (Ounces): 0.0 Weight (Calculated Kilograms): 79.819013 Constitutional: AAO x 3, well-developed, well-nourished Respiratory: No accessory muscle use, No respiratory distress; chest expansion is symmetric, chest is bilaterally symmetric, lungs clear to auscultation Cardiovascular: regular rate-rhythm; No JVD; S1 and S2, systolic murmur Gastrointestional: No tender; soft, round, audible bowel sounds Extremities: no lower extremity edema bilateral Neurologic/Psychiatric: grossly intact (moves all extremities) Skin: No rash on exposed areas, No ulcerations on exposed areas Results/Procedures: Labs Laboratory Tests 08/27/21 10:26: Glucometer 163H 08/27/21 16:27: Glucometer 181H 08/27/21 20:57: Glucometer 150H 08/28/21 06:10: Glucometer 128H Microbiology 08/26/21 Blood Culture - Preliminary, Resulted No growth 08/26/21 Urine Culture - Final, Complete NO GROWTH Laboratory Tests 08/26/21 10:23 08/27/21 05:12 A/P: Assessment: Acute on chronic diastolic CHF - clinically improved Constipation - management per medical services Back pain - management per medical services SSS and PAF: - Holter of 02/25/20: predominant rhythm is A Fib, avg heart rate 71 bpm, isol ated and coupled PVCs PVC burden 1.2%), no significant fede Chronic exertional shortness of breath - stable Valvular dz: - Echocardiogram of Sep 16, 2019 showed LVEF 55-65%. Grade 1 diastolic dysfun ction. LA mod dilated. Mitral valve with severly calcified annulus, consistent with mild stenosis with mild regurg. AoV with mild stenosis. Mild to mod regurg. RVSP 43 mmHg Normal TSH : - 02/19/20: 1.42 (normal) CAD with a history of coronary artery bypass surgery. - Last cardiac catheterization was on 03/31/2013. There was severe [place] coronary artery disease. There was a widely patent left internal mammary artery graft to the distal left anterior descending. There was a widely patent saphenou s vein graft to an obtuse marginal of the left circumflex. It was severely diseased saphenous vein graft to distal right coronary. It had 99% ostial/proximal stenosis which was successfully stented with Promus element 3.5 x 12 mm stent with good results. - MPI of 02/16/20: basal myocardial infarction w/o ischemia and with local basal inf hypokinesis to akinesis Hypertension: - essential, with a component of white coat, currently controlled HLD: - well controlled on therapy with atorvastatin, being followed by her PCP. Chronic limitation of ambulation: - due to chronic R foot eversion following trauma in , and chronic joint and back discomfort. DM 2: - managed by PCP CKD: - stage 2-3, likely due to diabetic nephropathy (Cr on 02/19/20 1.1) Carotid dz: - Mild bilateral carotid plaque without evidence of hemodynamic significance, per ultrasound of 02/23/19 Abnormal ECG: - ECG 02/19/19: NSR, LVH with repol abn, LAFB Plan: Echocardiogram to eval valvular status Monitor lab Replace electrolytes as indicated Spoke with Dr. Aviles this morning regarding plan of care Management of constipation per medical services Management of back pain per medical services CHF appears clinically compensated. Outpt f/u advised CANDIDO GUERRA MD FACP [facility] Aug 28, 2021 09:48
[2021-08-28] MEDS ORDERED: NS (IVPB) 250 ML IV ONE (12:15)
[2021-08-28] MEDS ORDERED: NS IV 500 ML 500 ML IV ONE (12:15)
[2021-08-28] MEDS: NS IV 1000 ML 1,000 ML IV SCH ×2 (12:55→23:31)
[2021-08-28] MEDS: SIMvastatin 10 MG (ZOCOR) TAB PO SCH (20:19)
[2021-08-29] VITALS (7 sets, daily range): BP systolic 91–128; BP diastolic 52–63
[2021-08-29] MEDS: RT-ALBUTEROL SULF 2.5 MG/3 ML PRE-MIX VIAL INH SCH ×6 (02:14→22:39)
[2021-08-29] MEDS: inSUlin ASPART (NovoLOG) 1 UNIT/0.01 ML (CHARGE PER UNIT) SC SCH ×4 (06:24→21:04)
[2021-08-29] MEDS: PANTOPRAZOLE 40 MG (PROTONIX) TAB PO SCH (06:44)
--- NOTE | 2021-08-29 07:39 | Progress Note ---
Subjective Subjective Date Seen by Provider: Aug 29, 2021 Time Seen by Provider: 07:00 Review of Systems General: No Chills, No Night Sweats Pulmonary: No Dyspnea, No Cough Gastrointestinal: No: Nausea, Vomiting Musculoskeletal: back pain Objective Exam Vital Signs Vital Signs Date Time Temp Pulse Resp B/P (MAP) Pulse Ox O2 Delivery O2 Flow Rate FiO2 08/29/21 07:17 36.3 115 94 36 08/29/21 07:08 94 Nasal Cannula 4.00 08/29/21 07:00 110 08/29/21 04:00 36.3 118 24 128/63 (84) 93 Nasal Cannula 3.00 08/29/21 02:14 90 Nasal Cannula 3.00 08/29/21 00:38 103 08/28/21 23:30 36.2 93 22 129/57 (81) 93 Nasal Cannula 3.00 08/28/21 21:00 93 Nasal Cannula 3.00 08/28/21 20:59 99 08/28/21 20:19 Nasal Cannula 3.00 08/28/21 20:00 36.3 97 20 100/50 (67) 95 Nasal Cannula 3.00 08/28/21 17:42 128 08/28/21 16:03 37.0 153 20 121/58 (79) 91 Nasal Cannula 3.00 08/28/21 14:59 92 Nasal Cannula 3.00 08/28/21 12:00 35.6 69 20 68/40 (49) 97 Nasal Cannula 4.00 08/28/21 08:22 3.00 08/28/21 08:19 93 Nasal Cannula 4.00 08/28/21 08:00 36.1 110 21 96/58 (71) 90 Nasal Cannula 4.00 08/28/21 08:00 Nasal Cannula 4.00 I & O 08/29/21 07:00 Intake Total 1250 ml Output Total 150 ml Balance 1100 ml General Appearance: No Apparent Distress, Chronically ill, Obese Eyes: Bilateral Eye Normal Inspection, Bilateral Eye PERRL, Bilateral Eye EOMI HEENT: PERRL/EOMI, Pharynx Normal Neck: Normal Inspection Respiratory: Lungs Clear, Normal Breath Sounds, No Respiratory Distress Cardiovascular: No Edema, No Murmur, Tachycardia Gastrointestinal: Normal Bowel Sounds, Non Tender, Soft Back: No CVA Tenderness Extremity: Normal Inspection, Non Tender, No Pedal Edema Neurologic/Psychiatric: Alert, Normal Mood/Affect Skin: Normal Color, Warm/Dry Lymphatic: No Adenopathy Results Lab Laboratory Tests 08/28/21 11:44: Glucometer 159H 08/28/21 15:24: Glucometer 223H 08/28/21 20:28: Glucometer 128H 08/29/21 06:10: Glucometer 98 Microbiology 08/26/21 Blood Culture - Preliminary, Resulted No growth 08/26/21 Urine Culture - Final, Complete NO GROWTH Assessment/Plan Assessment/Plan Assessment and Plan ACUTE ON CHRONIC RESPIRATORY FAILURE W/HYPOXIA HFpEF FLUID OVERLOAD CONTINUE LASIX INCREASED O2 REQ. FROM BASELINE NO OVERT FAILURE ON CXR NORMAL EF, GRADE 1 DIASTOLIC DYSFUNCTION ON ECHO CARDIOLOGY ON BOARD HTN CAD T2DM HLD GERD CKD3 AFib Continue home meds DVT prophylaxis: already receiving therapeutic anticoagulation KATEY SANDERS Aug 29, 2021 07:39
[2021-08-29] MEDS: APIXABAN 2.5 MG (ELIQUIS) TABLET PO SCH ×2 (08:25→20:52)
[2021-08-29] MEDS: DOCUSATE SODIUM 100 MG (COLACE) CAP PO SCH ×3 (08:26→21:04)
[2021-08-29] MEDS: glipiZIDE XL 10 MG (GLUCOTROL XL) TAB PO SCH (08:26)
[2021-08-29] MEDS: SENNA W/DOCUSATE (SENOKOT S) TABLET PO SCH ×2 (08:26→21:05)
[2021-08-29] MEDS: FAMOTIDINE 20 MG (PEPCID) TABLET PO SCH (08:26)
[2021-08-29] MEDS: ASPIRIN 81 MG CHEW (CHILDREN'S ASA) PO SCH (08:26)
[2021-08-29 08:55] LABS: POTASSIUM 4.8 MMOL/L (3.6-5.0)
[2021-08-29 08:56] LABS: CALCIUM 8.3 MG/DL (8.5-10.1)
[2021-08-29 09:01] LABS: CREATININE SERUM 2.8 MG/DL (0.60-1.30)
[2021-08-29 09:03] LABS: MAGNESIUM 1.7 MG/DL (1.6-2.4)
[2021-08-29] MEDS: amLODIPine 10 MG (NORVASC) TAB PO SCH (09:09)
[2021-08-29] MEDS: lisINopril 40 MG (PRINIVIL) TABLET PO SCH (09:09)
--- NOTE | 2021-08-29 09:26 | Progress Note ---
Subjective Subjective Date Seen by Provider: Aug 30, 2021 Time Seen by Provider: 08:20 PT REPORTS THAT SHE IS BREATHING A LITTLE BIT BETTER TODAY SHE CONTINUES TO HAVE BACK PAIN, HURTS TO COUGH SHE HAD SMALL BM YESTERDAY PER HER REPORT. Review of Systems General: No Chills, No Night Sweats; Fatigue, Malaise Pulmonary: Dyspnea, Cough Gastrointestinal: No: Nausea, Vomiting Musculoskeletal: back pain Neurological: Weakness; No: Confusion Objective Exam Vital Signs Vital Signs Date Time Temp Pulse Resp B/P (MAP) Pulse Ox O2 Delivery O2 Flow Rate FiO2 08/29/21 08:34 36.4 118 20 115/56 (75) 92 Nasal Cannula 4.00 08/29/21 08:00 Nasal Cannula 4.00 08/29/21 07:17 36.3 115 94 36 08/29/21 07:08 94 Nasal Cannula 4.00 08/29/21 07:00 110 08/29/21 04:00 36.3 118 24 128/63 (84) 93 Nasal Cannula 3.00 08/29/21 02:14 90 Nasal Cannula 3.00 08/29/21 00:38 103 08/28/21 23:30 36.2 93 22 129/57 (81) 93 Nasal Cannula 3.00 08/28/21 21:00 93 Nasal Cannula 3.00 08/28/21 20:59 99 08/28/21 20:19 Nasal Cannula 3.00 08/28/21 20:00 36.3 97 20 100/50 (67) 95 Nasal Cannula 3.00 08/28/21 17:42 128 08/28/21 16:03 37.0 153 20 121/58 (79) 91 Nasal Cannula 3.00 08/28/21 14:59 92 Nasal Cannula 3.00 08/28/21 12:00 35.6 69 20 68/40 (49) 97 Nasal Cannula 4.00 I & O 08/29/21 07:00 Intake Total 1250 ml Output Total 150 ml Balance 1100 ml General Appearance: Chronically ill, Mild Distress, Obese Eyes: Bilateral Eye Normal Inspection, Bilateral Eye PERRL, Bilateral Eye EOMI HEENT: PERRL/EOMI, Pharynx Normal Neck: Normal Inspection Respiratory: Lungs Clear, Normal Breath Sounds, No Respiratory Distress Cardiovascular: No Edema, No Murmur, Tachycardia Gastrointestinal: Normal Bowel Sounds, Non Tender, Soft Back: No CVA Tenderness Extremity: Normal Inspection, Non Tender, No Pedal Edema Neurologic/Psychiatric: Alert, Normal Mood/Affect Skin: Normal Color, Warm/Dry, Other (PINK ON BILATERAL GLUTEUS AND SACRUM) Lymphatic: No Adenopathy Results Lab Laboratory Tests 08/28/21 11:44: Glucometer 159H 08/28/21 15:24: Glucometer 223H 08/28/21 20:28: Glucometer 128H 08/29/21 06:10: Glucometer 98 08/29/21 08:35: Sodium Level 138, Potassium Level 4.8, Chloride Level 104, Carbon Dioxide Level 22, Anion Gap 12, Blood Urea Nitrogen 39H, Estimat Glomerular Filtration Rate 16, BUN/Creatinine Ratio 14, Glucose Level 98, Calcium Level 8.3L, Magnesium Level 1.7 Microbiology 08/26/21 Blood Culture - Preliminary, Resulted No growth 08/26/21 Urine Culture - Final, Complete NO GROWTH Assessment/Plan Assessment/Plan Assessment and Plan ACUTE RESPIRATORY FAILURE ACUTE RENAL FAILURE HYPOXIA FLUID OVERLOAD HYPERTENSION CORONARY ARTERY DISEASE WITH HX OF INTERVENTION DIABETES MELLITUS HYPERLIPIDEMIA CHRONIC ATRIAL FIBRILLATION ON ANTICOAGULATION ACUTE RESPIRATORY FAILURE - WITH FLUID OVERLOAD AND HYPOXIA - IMPROVED WITH DIURESIS, MONITOR SYMPTOMS, CONTINUE WITH CHRONIC OXYGEN THERAPY AT HOME 2-3 LITERS. - PLAN HAD BEEN FOR DC TO HOME, BUT WITH HER WORSENING PULMONARY STATUS AND WORSENING RENAL FUNCTION - PT KEPT IN HOSPITAL - DISCUSSED HOSPICE WITH PT AND DTR IN LAW AND HER AND SON ON THE PHONE - THEY ARE IN AGREEMENT WITH TRANSITION TO HOSPICE AT HOME. FAMILY WOULD LIKE [facility], WILL CONTACT THEM TO SET UP SERVICES IN HER HOME FOR DISCHARGE SATURDAY OR SATURDAY DEPENDING ON PT'S SYMPTOMS. ACUTE RENAL FAILURE - MONITOR LABS - WORSENING LABS - CREATININE 2.7 - DR. GUERRA ORDERED FLUIDS, WILL CONTINUE WITH IV FLUIDS AT 75ML/HR HYPERTENSION - HYPOTENSIVE YESTERDAY - SUPPORTIVE CARE WITH FLUIDS, MONITOR PRESSURE CLOSELY. CORONARY ARTERY DISEASE WITH HX OF INTERVENTION DIABETES MELLITUS - PT ON HOME REGIMEN - MONITOR FSBS HYPERLIPIDEMIA CHRONIC ATRIAL FIBRILLATION ON ANTICOAGULATION - PT ON ROMAINE RIVERA MD Aug 29, 2021 09:26
--- NOTE | 2021-08-29 09:55 | Progress Note - Cardiology ---
Cardiology SOAP Progress Note Objective: I&O/Vital Signs 08/29/21 08/29/21 08/30/21 08/30/21 22:39 23:30 01:00 02:48 Temp 36.5 Pulse 107 109 Resp 22 B/P (MAP) 120/59 (79) Pulse Ox 92 93 93 O2 Delivery Nasal Cannula High Flow N/C Nasal Cannula O2 Flow Rate 4.00 4.00 4.00 08/30/21 08/30/21 08/30/21 08/30/21 04:00 07:00 07:13 08:36 Temp 36.3 36.8 Pulse 120 103 116 Resp 24 30 B/P (MAP) 134/59 (84) 139/63 (88) Pulse Ox 90 90 90 O2 Delivery High Flow N/C Nasal Cannula Nasal Cannula O2 Flow Rate 5.00 5.00 5.00 08/30/21 00:00 Intake Total 830 ml Output Total 375 ml Balance 455 ml Weight (Pounds): 176 Weight (Ounces): 0.0 Weight (Calculated Kilograms): 79.600215 Constitutional: AAO x 3, well-developed, well-nourished Respiratory: No accessory muscle use, No respiratory distress; chest expansion is symmetric, chest is bilaterally symmetric, lungs clear to auscultation Cardiovascular: regular rate-rhythm; No JVD; S1 and S2, systolic murmur Gastrointestional: No tender; soft, round, audible bowel sounds Extremities: no lower extremity edema bilateral Neurologic/Psychiatric: grossly intact (moves all extremities) Skin: No rash on exposed areas, No ulcerations on exposed areas Results/Procedures: Labs Laboratory Tests 08/29/21 10:51: Glucometer 114H 08/29/21 16:31: Glucometer 109 08/29/21 20:20: Glucometer 124H 08/30/21 05:52: Glucometer 86 08/30/21 05:53: Sodium Level 140, Potassium Level 5.5H, Chloride Level 108H, Carbon Dioxide Level 22, Anion Gap 10, Blood Urea Nitrogen 36H, Creatinine 1.77H, Estimat Glomerular Filtration Rate 27, BUN/Creatinine Ratio 20, Glucose Level 96, Calcium Level 8.5 08/30/21 08:10: Potassium Level 5.1H Microbiology 08/26/21 Blood Culture - Preliminary, Resulted No growth 08/26/21 Urine Culture - Final, Complete NO GROWTH A/P: Assessment: Acute on chronic diastolic CHF - clinically improved Constipation - management per medical services Back pain - management per medical services SSS and PAF: - Holter of 02/25/20: predominant rhythm is A Fib, avg heart rate 71 bpm, isolated and coupled PVCs PVC burden 1.2%), no significant fede Chronic exertional shortness of breath - stable Valvular dz: - Echocardiogram of Sep 16, 2019 showed LVEF 55-65%. Grade 1 diastolic dysfunction. LA mod dilated. Mitral valve with severly calcified annulus, consistent with mild stenosis with mild regurg. AoV with mild stenosis. Mild to mod regurg. RVSP 43 mmHg Normal TSH : - 02/19/20: 1.42 (normal) CAD with a history of coronary artery bypass surgery. - Last cardiac catheterization was on 03/31/2013. There was severe [place] coronary artery disease. There was a widely patent left internal mammary artery graft to the distal left anterior descending. There was a widely patent saphenous vein graft to an obtuse marginal of the left circumflex. It was severely diseased saphenous vein graft to distal right coronary. It had 99% ostial/proximal stenosis which was successfully stented with Promus element 3.5 x 12 mm stent with good results. - MPI of 02/16/20: basal myocardial infarction w/o ischemia and with local basal inf hypokinesis to akinesis Hypertension: - essential, with a component of white coat, currently controlled HLD: - well controlled on therapy with atorvastatin, being followed by her PCP. Chronic limitation of ambulation: - due to chronic R foot eversion following trauma in , and chronic joint and back discomfort. DM 2: - managed by PCP CKD with FREDY - chronic likely stage 2-3, likely due to diabetic nephropathy - acute episode likely secondary to hypotension - give IVF Carotid dz: - Mild bilateral carotid plaque without evidence of hemodynamic significance, per ultrasound of 02/23/19 Abnormal ECG: - ECG 02/19/19: NSR, LVH with repol abn, LAFB Plan: Hypotensive yesterday - received IVF FREDY likely secondary to hypotension - give IVF Episode of SVT overnight - stop Lisinopril and Norvasc - start BB, low dose Monitor lab Replace electrolytes as indicated Spoke with Dr. Aviles this morning regarding plan of care Management of constipation per medical services Management of back pain per medical services Probable d/c home tomorrow with hospice services RAJEEV VASQUEZ Aug 29, 2021 09:55
[2021-08-29] MEDS ORDERED: SENNA W/DOCUSATE (SENOKOT S) TABLET PO NR (10:30)
--- NOTE | 2021-08-29 10:51 | Progress Note - Cardiology ---
Cardiology SOAP Progress Note Subjective: Shortness of breath better No cp No palp or syncope Gen malaise and weakness present No n/v/d Objective: I&O/Vital Signs 08/28/21 08/29/21 08/29/21 08/29/21 23:30 00:38 02:14 04:00 Temp 36.2 36.3 Pulse 93 103 118 Resp 22 24 B/P (MAP) 129/57 (81) 128/63 (84) Pulse Ox 93 90 93 O2 Delivery Nasal Cannula Nasal Cannula Nasal Cannula O2 Flow Rate 3.00 3.00 3.00 08/29/21 08/29/21 08/29/21 08/29/21 07:00 07:08 07:17 08:00 Temp 36.3 Pulse 110 115 Pulse Ox 94 94 O2 Delivery Nasal Cannula Nasal Cannula O2 Flow Rate 4.00 4.00 FiO2 36 08/29/21 08:34 Temp 36.4 Pulse 118 Resp 20 B/P (MAP) 115/56 (75) Pulse Ox 92 O2 Delivery Nasal Cannula O2 Flow Rate 4.00 08/29/21 00:00 Intake Total 1150 ml Output Total 50 ml Balance 1100 ml Weight (Pounds): 176 Weight (Ounces): 0.0 Weight (Calculated Kilograms): 79.956097 Constitutional: AAO x 3, well-developed, well-nourished Respiratory: No accessory muscle use, No respiratory distress; chest expansion is symmetric, chest is bilaterally symmetric, lungs clear to auscultation Cardiovascular: regular rate-rhythm; No JVD; S1 and S2, systolic murmur Gastrointestional: No tender; soft, round, audible bowel sounds Extremities: no lower extremity edema bilateral Neurologic/Psychiatric: grossly intact (moves all extremities) Skin: No rash on exposed areas, No ulcerations on exposed areas Results/Procedures: Labs Laboratory Tests 08/28/21 11:44: Glucometer 159H 08/28/21 15:24: Glucometer 223H 08/28/21 20:28: Glucometer 128H 08/29/21 06:10: Glucometer 98 08/29/21 08:35: Sodium Level 138, Potassium Level 4.8, Chloride Level 104, Carbon Dioxide Level 22, Anion Gap 12, Blood Urea Nitrogen 39H, Creatinine 2.80#H, Estimat Glomerular Filtration Rate 16, BUN/Creatinine Ratio 14, Glucose Level 98, Calcium Level 8.3L, Magnesium Level 1.7 Microbiology 08/26/21 Blood Culture - Preliminary, Resulted No growth 08/26/21 Urine Culture - Final, Complete NO GROWTH A/P: Assessment: FREDY - 2, probably due to ATN due to hypotension due to meds and due to volume depletion due to diuretics CKD - 2 to 3, due to diabetic nephropathy Constipation - management per medical services Back pain - management per medical services SSS and PAF: - Holter of 02/25/20: predominant rhythm is A Fib, avg heart rate 71 bpm, isolated and coupled PVCs PVC burden 1.2%), no significant fede Chronic exertional shortness of breath - stable Valvular dz: - Echocardiogram of Sep 16, 2019 showed LVEF 55-65%. Grade 1 diastolic dysfunction. LA mod dilated. Mitral valve with severly calcified annulus, consistent with mild stenosis with mild regurg. AoV with mild stenosis. Mild to mod regurg. RVSP 43 mmHg Normal TSH : - 02/19/20: 1.42 (normal) CAD with a history of coronary artery bypass surgery. - Last cardiac catheterization was on 03/31/2013. There was severe [place] coronary artery disease. There was a widely patent left internal mammary artery graft to the distal left anterior descending. There was a widely patent saphenous vein graft to an obtuse marginal of the left circumflex. It was severely diseased saphenous vein graft to distal right coronary. It had 99% ostial/proximal stenosis which was successfully stented with Promus element 3.5 x 12 mm stent with good results. - MPI of 02/16/20: basal myocardial infarction w/o ischemia and with local basal inf hypokinesis to akinesis Hypertension: - essential, with a component of white coat, currently controlled HLD: - well controlled on therapy with atorvastatin, being followed by her PCP. Chronic limitation of ambulation: - due to chronic R foot eversion following trauma in , and chronic joint and back discomfort. DM 2: - managed by PCP Carotid dz: - Mild bilateral carotid plaque without evidence of hemodynamic significance, per ultrasound of 02/23/19 Abnormal ECG: - ECG 02/19/19: NSR, LVH with repol abn, LAFB Plan: Give IVF and stop lisinopril and Norvasc Low-dose bb to treat brief SVT seen on tele Monitor lab Replace electrolytes as indicated Out team spoke with Dr. Aviles this morning regarding plan of care Management of constipation per medical services Management of back pain per medical services Probable d/c home tomorrow with hospice services CANDIDO GUERRA MD FACP FACC CCDS Aug 29, 2021 10:51
[2021-08-29] MEDS: SIMETHICONE 80 MG (MYLICON) CHEW PO SCH ×3 (13:00→20:55)
[2021-08-29] MEDS: NS IV 1000 ML 1,000 ML IV SCH (13:44)
[2021-08-29] MEDS: SIMvastatin 10 MG (ZOCOR) TAB PO SCH (20:52)
[2021-08-30] MEDS: NS IV 1000 ML 1,000 ML IV SCH (02:39)
[2021-08-30] MEDS: RT-ALBUTEROL SULF 2.5 MG/3 ML PRE-MIX VIAL INH SCH ×6 (02:48→21:25)
[2021-08-30 04:00] VITALS: BP 134/59
[2021-08-30] MEDS: inSUlin ASPART (NovoLOG) 1 UNIT/0.01 ML (CHARGE PER UNIT) SC SCH ×4 (06:12→20:48)
[2021-08-30] MEDS: PANTOPRAZOLE 40 MG (PROTONIX) TAB PO SCH (06:12)
[2021-08-30 06:26] LABS: POTASSIUM 5.5 MMOL/L (3.6-5.0)
[2021-08-30 06:27] LABS: CALCIUM 8.5 MG/DL (8.5-10.1)
[2021-08-30 06:31] LABS: CREATININE SERUM 1.77 MG/DL (0.60-1.30)
--- NOTE | 2021-08-30 08:04 | Progress Note ---
Subjective Subjective Date Seen by Provider: Aug 30, 2021 Time Seen by Provider: 07:45 Patient does not feel very well this morning. It has become more difficult for her to breath, especially in the morning. She has to breath carefully or else she will start coughing, which hurts her back. Denies any N/V or sweats/chills. Review of Systems General: No Chills, No Night Sweats Pulmonary: Dyspnea, Cough Gastrointestinal: No: Nausea, Vomiting Musculoskeletal: back pain Objective Exam Vital Signs Vital Signs Date Time Temp Pulse Resp B/P (MAP) Pulse Ox O2 Delivery O2 Flow Rate FiO2 08/30/21 07:13 90 Nasal Cannula 5.00 08/30/21 07:00 103 08/30/21 04:00 36.3 120 24 134/59 (84) 90 High Flow N/C 5.00 08/30/21 02:48 93 Nasal Cannula 4.00 08/30/21 01:00 109 08/29/21 23:30 36.5 107 22 120/59 (79) 93 High Flow N/C 4.00 08/29/21 22:39 92 Nasal Cannula 4.00 08/29/21 20:49 36.5 96 24 120/57 (78) 90 High Flow N/C 4.00 08/29/21 20:00 Nasal Cannula 4.00 08/29/21 19:04 111 08/29/21 15:59 36.8 97 22 102/52 (69) 92 Nasal Cannula 4.00 08/29/21 14:45 92 Nasal Cannula 4.00 08/29/21 12:15 112 08/29/21 11:34 37.0 111 22 91/54 (66) 91 Nasal Cannula 4.00 08/29/21 11:15 91 Nasal Cannula 4.00 08/29/21 08:34 36.4 118 20 115/56 (75) 92 Nasal Cannula 4.00 08/29/21 08:00 Nasal Cannula 4.00 I & O 08/30/21 07:00 Intake Total 2930 ml Output Total 1025 ml Balance 1905 ml General Appearance: Chronically ill, Mild Distress, Obese Eyes: Bilateral Eye Normal Inspection, Bilateral Eye PERRL, Bilateral Eye EOMI HEENT: PERRL/EOMI, Pharynx Normal Neck: Normal Inspection Respiratory: Chest Non Tender, Crackles (B/L) Cardiovascular: No Edema, No Murmur, Tachycardia Gastrointestinal: Normal Bowel Sounds, Non Tender, Soft Back: No CVA Tenderness Extremity: Normal Inspection, Non Tender, No Pedal Edema Neurologic/Psychiatric: Alert, Normal Mood/Affect Skin: Normal Color, Warm/Dry Lymphatic: No Adenopathy Results Lab Laboratory Tests 08/29/21 08:35: Sodium Level 138, Potassium Level 4.8, Chloride Level 104, Carbon Dioxide Level 22, Anion Gap 12, Blood Urea Nitrogen 39H, Creatinine 2.80#H, Estimat Glomerular Filtration Rate 16, BUN/Creatinine Ratio 14, Glucose Level 98, Calcium Level 8.3L, Magnesium Level 1.7 08/29/21 10:51: Glucometer 114H 08/29/21 16:31: Glucometer 109 08/29/21 20:20: Glucometer 124H 08/30/21 05:52: Glucometer 86 08/30/21 05:53: Sodium Level 140, Potassium Level 5.5H, Chloride Level 108H, Carbon Dioxide Level 22, Anion Gap 10, Blood Urea Nitrogen 36H, Creatinine 1.77H, Estimat Glomerular Filtration Rate 27, BUN/Creatinine Ratio 20, Glucose Level 96, Calcium Level 8.5 Microbiology 08/26/21 Blood Culture - Preliminary, Resulted No growth 08/26/21 Urine Culture - Final, Complete NO GROWTH Assessment/Plan Assessment/Plan Assessment and Plan ACUTE ON CHRONIC RESPIRATORY FAILURE W/HYPOXIA HFpEF FLUID OVERLOAD D/C IV FLUIDS O2 REQUIREMENTS INCREASING- 5L CURRENTLY NORMAL EF, GRADE 1 DIASTOLIC DYSFUNCTION ON ECHO CARDIOLOGY ON BOARD FREDY HOLD DIURETICS, LISINOPRIL HYPERKALEMIA SECONDARY TO FREDY MONITOR DAILY HTN CAD T2DM HLD GERD CKD3 AFib Continue home meds DVT prophylaxis: already receiving therapeutic anticoagulation Supervisory-Addendum Brief Verification & Attestation Participated in pt care: history, MDM, physical Personally performed: exam, history, MDM, supervision of care Care discussed with: Medical Student Procedures: n/a Results interpretation: Verified all documentation AGREE WITH STUDENT NOTE DOCUMENTED DISCUSSED WITH PT'S DTR - HOSPICE IN HOSPITAL MAY BE A GOOD OPTION FOR HER - WE WILL KEEP HER TODAY DUE TO PATIENT'S DECLINE. ACUTE RESPIRATORY FAILURE ACUTE RENAL FAILURE HYPOXIA FLUID OVERLOAD HYPERTENSION CORONARY ARTERY DISEASE WITH HX OF INTERVENTION DIABETES MELLITUS HYPERLIPIDEMIA CHRONIC ATRIAL FIBRILLATION ON ANTICOAGULATION ACUTE RESPIRATORY FAILURE - WITH FLUID OVERLOAD AND HYPOXIA - IMPROVED WITH DIURESIS, MONITOR SYMPTOMS, CONTINUE WITH CHRONIC OXYGEN THERAPY AT HOME 2-3 LITERS. - PLAN HAD BEEN FOR DC TO HOME, BUT WITH HER WORSENING PULMONARY STATUS AND WORSENING RENAL FUNCTION - PT KEPT IN HOSPITAL - DISCUSSED HOSPICE WITH PT AND FAMILY ACUTE RENAL FAILURE - WAS IMPROVED OFF OF LASIX HYPERTENSION CORONARY ARTERY DISEASE WITH HX OF INTERVENTION DIABETES MELLITUS - PT ON HOME REGIMEN - MONITOR FSBS HYPERLIPIDEMIA CHRONIC ATRIAL FIBRILLATION ON ANTICOAGULATION - PT ON KATEY BREWER Aug 30, 2021 08:04 ROMAINE ROSA MD Aug 31, 2021 09:22
[2021-08-30 08:36] VITALS: BP 139/63
[2021-08-30] MEDS: SIMETHICONE 80 MG (MYLICON) CHEW PO SCH ×3 (08:36→20:50)
[2021-08-30] MEDS: FAMOTIDINE 20 MG (PEPCID) TABLET PO SCH (08:36)
[2021-08-30] MEDS: glipiZIDE XL 10 MG (GLUCOTROL XL) TAB PO SCH (08:36)
[2021-08-30] MEDS: APIXABAN 2.5 MG (ELIQUIS) TABLET PO SCH ×2 (08:36→20:47)
[2021-08-30] MEDS: SENNA W/DOCUSATE (SENOKOT S) TABLET PO SCH ×2 (08:41→20:47)
[2021-08-30] MEDS: DOCUSATE SODIUM 100 MG (COLACE) CAP PO SCH ×3 (08:41→20:47)
[2021-08-30 12:02] VITALS: BP 122/56
--- NOTE | 2021-08-30 13:15 | Progress Note - Cardiology ---
Cardiology SOAP Progress Note Subjective: No cp or palp or syncope Shortness of breath unchanged Gen malaise No n/v/d Objective: I&O/Vital Signs 08/30/21 08/30/21 08/30/21 08/30/21 02:48 04:00 07:00 07:13 Temp 36.3 Pulse 120 103 Resp 24 B/P (MAP) 134/59 (84) Pulse Ox 93 90 90 O2 Delivery Nasal Cannula High Flow N/C Nasal Cannula O2 Flow Rate 4.00 5.00 5.00 08/30/21 08/30/21 08/30/21 08/30/21 08:00 08:36 09:53 12:02 Temp 36.8 36.6 Pulse 116 118 Resp 30 28 B/P (MAP) 139/63 (88) 122/56 (78) Pulse Ox 90 90 94 O2 Delivery Nasal Cannula Nasal Cannula Nasal Cannula Nasal Cannula O2 Flow Rate 5.00 5.00 5.00 5.00 08/30/21 00:00 Intake Total 830 ml Output Total 375 ml Balance 455 ml Weight (Pounds): 176 Weight (Ounces): 0.0 Weight (Calculated Kilograms): 79.373675 Constitutional: AAO x 3, well-developed, well-nourished Respiratory: No accessory muscle use, No respiratory distress; chest expansion is symmetric, chest is bilaterally symmetric, lungs clear to auscultation Cardiovascular: regular rate-rhythm; No JVD; S1 and S2, systolic murmur Gastrointestional: No tender; soft, round, audible bowel sounds Extremities: no lower extremity edema bilateral Neurologic/Psychiatric: grossly intact (moves all extremities) Skin: No rash on exposed areas, No ulcerations on exposed areas Results/Procedures: Labs Laboratory Tests 08/29/21 16:31: Glucometer 109 08/29/21 20:20: Glucometer 124H 08/30/21 05:52: Glucometer 86 08/30/21 05:53: Sodium Level 140, Potassium Level 5.5H, Chloride Level 108H, Carbon Dioxide L evel 22, Anion Gap 10, Blood Urea Nitrogen 36H, Creatinine 1.77H, Estimat Glomerular Filtration Rate 27, BUN/Creatinine Ratio 20, Glucose Level 96, Calcium Level 8.5 08/30/21 08:10: Potassium Level 5.1H 08/30/21 11:17: Glucometer 129H Microbiology 08/26/21 Blood Culture - Preliminary, Resulted No growth 08/26/21 Urine Culture - Final, Complete NO GROWTH Laboratory Tests 08/29/21 08:35 08/30/21 05:53 08/30/21 08:10 A/P: Assessment: FREDY - 2, probably due to ATN due to hypotension due to meds and due to volume depletion due to diuretics, improved with hydration CKD - 2 to 3, due to diabetic nephropathy Constipation - management per medical services Back pain - management per medical services SSS and PAF: - Holter of 02/25/20: predominant rhythm is A Fib, avg heart rate 71 bpm, isolated and coupled PVCs PVC burden 1.2%), no significant fede Chronic exertional shortness of breath - stable Valvular dz: - Echocardiogram of Sep 16, 2019 showed LVEF 55-65%. Grade 1 diastolic dysfunction. LA mod dilated. Mitral valve with severly calcified annulus, consistent with mild stenosis with mild regurg. AoV with mild stenosis. Mild to mod regurg. RVSP 43 mmHg Normal TSH : - 02/19/20: 1.42 (normal) CAD with a history of coronary artery bypass surgery. - Last cardiac catheterization was on 03/31/2013. There was severe [place] coronary artery disease. There was a widely patent left internal mammary artery graft to the distal left anterior descending. There was a widely patent saphenous vein graft to an obtuse marginal of the left circumflex. It was severely diseased saphenous vein graft to distal right coronary. It had 99% ostial/proximal stenosis which was successfully stented with Promus element 3.5 x 12 mm stent with good results. - MPI of 02/16/20: basal myocardial infarction w/o ischemia and with local basal inf hypokinesis to akinesis Hypertension: - essential, with a component of white coat, currently controlled HLD: - well controlled on therapy with atorvastatin, being followed by her PCP. Chronic limitation of ambulation: - due to chronic R foot eversion following trauma in , and chronic joint and back discomfort. DM 2: - managed by PCP Carotid dz: - Mild bilateral carotid plaque without evidence of hemodynamic significance, per ultrasound of 02/23/19 Abnormal ECG: - ECG 02/19/19: NSR, LVH with repol abn, LAFB Plan: Complex management due to multiple comorbidities Monitor lab Replace electrolytes as indicated Probable d/c home tomorrow with hospice services CANDIDO GUERRA MD FACP FAC CCDS Aug 30, 2021 13:15
[2021-08-30] MEDS: ACETAMINOPHEN 500 MG TAB (TYLENOL) PO PRN (15:09)
[2021-08-30 15:49] VITALS: BP 109/53
[2021-08-30] MEDS: DICLOFENAC 1% GEL 100 GM (VOLTAREN) TUBE TOP SCH ×2 (16:45→20:48)
[2021-08-30 20:00] VITALS: BP 112/67
[2021-08-30] MEDS: SIMvastatin 10 MG (ZOCOR) TAB PO SCH (20:47)
[2021-08-30] MEDS ORDERED: FUROSEMIDE 40 MG/4 ML INJ (LASIX) IVP ONE (21:30)
[2021-08-30] MEDS ORDERED: FUROSEMIDE 40 MG/4 ML INJ (LASIX) ONE (21:36)
[2021-08-30] MEDS ORDERED: FUROSEMIDE 40 MG/4 ML INJ (LASIX) IVP NR (22:30)
[2021-08-31 00:37] VITALS: BP 123/60
[2021-08-31] MEDS ORDERED: LORazepam 0.5 MG (ATIVAN) TABLET PO NR (01:45)
[2021-08-31 04:21] VITALS: BP 136/74
[2021-08-31] MEDS: RT-ALBUTEROL SULF 2.5 MG/3 ML PRE-MIX VIAL INH SCH ×5 (06:38→22:51)
[2021-08-31] MEDS: PANTOPRAZOLE 40 MG (PROTONIX) TAB PO SCH (06:50)
[2021-08-31] MEDS: inSUlin ASPART (NovoLOG) 1 UNIT/0.01 ML (CHARGE PER UNIT) SC SCH ×4 (06:50→21:00)
[2021-08-31 07:42] VITALS: BP 130/60
--- NOTE | 2021-08-31 09:23 | Progress Note ---
Subjective Subjective Date Seen by Provider: Aug 31, 2021 Time Seen by Provider: 09:20 PT'S DTR IS PRESENT IN THE ROOM, PT IS SITTING IN A CHAIR AT BEDSIDE ON BIPAP. PT'S DTR REPORTS THAT SHE IS WORRIED ABOUT HER MOM GOING HOME IN HER CURRENT STATE, SHE REPORTS THAT SHE WANTS HER MOM TO BE ABLE TO HAVE BIPAP AVAILABLE IF SHE NEEDS IT AT HOME. Review of Systems General: No Chills, No Night Sweats; Fatigue, Malaise Pulmonary: Dyspnea, Cough Gastrointestinal: No: Nausea, Vomiting Genitourinary: Other (WINN IN PLACE) Musculoskeletal: back pain Neurological: Weakness, Other (ANXIETY); No: Confusion Objective Exam Vital Signs Vital Signs Date Time Temp Pulse Resp B/P (MAP) Pulse Ox O2 Delivery O2 Flow Rate FiO2 08/31/21 07:42 36.6 111 30 130/60 (83) 91 NIV Bilevel 08/31/21 06:50 102 91 NIV Bilevel 08/31/21 06:38 109 25 92 40.00 08/31/21 04:21 36.0 119 34 136/74 (94) 92 Nasal Cannula 10.00 08/31/21 02:40 108 91 NIV Bilevel 08/31/21 02:05 121 40.00 08/31/21 01:50 123 93 NIV Bilevel 08/31/21 00:37 36.6 124 24 123/60 (81) 91 Nasal Cannula 10.00 08/30/21 21:25 91 OxyMask 10.00 08/30/21 20:50 Nasal Cannula 6.00 08/30/21 20:00 35.8 119 28 112/67 (82) 90 Nasal Cannula 6.00 08/30/21 18:36 90 Nasal Cannula 5.00 08/30/21 15:49 36.6 117 28 109/53 (71) 90 Nasal Cannula 6.00 08/30/21 14:59 90 Nasal Cannula 5.00 08/30/21 12:02 36.6 118 28 122/56 (78) 94 Nasal Cannula 5.00 08/30/21 09:53 90 Nasal Cannula 5.00 I & O 08/31/21 06:59 Intake Total 1410 ml Output Total 1950 ml Balance -540 ml General Appearance: Chronically ill, Mild Distress, Obese Eyes: Bilateral Eye Normal Inspection, Bilateral Eye PERRL, Bilateral Eye EOMI HEENT: PERRL/EOMI, Pharynx Normal Neck: Normal Inspection Respiratory: Chest Non Tender, Crackles (B/L) Cardiovascular: No Edema, No Murmur, Tachycardia Gastrointestinal: Normal Bowel Sounds, Non Tender, Soft Back: No CVA Tenderness Extremity: Normal Inspection, Non Tender, No Pedal Edema Neurologic/Psychiatric: Alert, Normal Mood/Affect Skin: Normal Color, Warm/Dry Lymphatic: No Adenopathy Results Lab Laboratory Tests 08/30/21 11:17: Glucometer 129H 08/30/21 15:56: Glucometer 232H 08/30/21 20:32: Glucometer 153H 08/31/21 05:35: Glucometer 209H Microbiology 08/26/21 Blood Culture - Preliminary, Resulted No growth 08/26/21 Urine Culture - Final, Complete NO GROWTH Assessment/Plan Assessment/Plan Assessment and Plan ACUTE RESPIRATORY FAILURE ACUTE RENAL FAILURE HYPOXIA FLUID OVERLOAD HYPERTENSION CORONARY ARTERY DISEASE WITH HX OF INTERVENTION DIABETES MELLITUS HYPERLIPIDEMIA CHRONIC ATRIAL FIBRILLATION ON ANTICOAGULATION ACUTE RESPIRATORY FAILURE - WITH FLUID OVERLOAD AND HYPOXIA - IMPROVED WITH DIURESIS, MONITOR SYMPTOMS, CONTINUE WITH CHRONIC OXYGEN THERAPY AT HOME 2-3 LITERS. - PLAN HAD BEEN FOR DC TO HOME, BUT WITH HER WORSENING PULMONARY STATUS AND WORSENING RENAL FUNCTION - PT KEPT IN HOSPITAL FAMILY MEETING TONIGHT - DISCUSSED WITH MULTIPLE FAMILY MEMBERS, SON, DTR, GRANDCHILDREN AND PT'S AT HER BEDSIDE. THEY ARE WORRIED THAT THEY DO NOT HAVE ENOUGH IN PLACE OR FAMILY READY TO CARE FOR THE PATIENT IN HER CURRENT STATE, THEY WOULD LIKE TO SEE PT'S FAMILY HAVE A BETTER PLAN FOR PROVIDING CARE FOR HER IN HER HOME. THE PATIENT IS ALSO SCARED OF GOING HOME AND POSSIBLY NEEDING THE BIPAP WHICH WAS PLACED ON HER LAST NIGHT AND "SAVED MY LIFE". ONE OF THE FAMILY MEMBERS ASKED WHAT WOULD HAVE HAPPENED IF SHE DID NOT HAVE THE BIPAP IN THE ROOM AND HER DTR ASKED "WHAT WOULD YOU DO, JUST LET HER ?" THIS FIELD ADVISOR ATTEMPTED TO ANSWER THE QUESTION - AND DID SO MULTIPLE TIMES IN DIFFERENT WAYS - EXPLAINING THAT PART OF HER SYMPTOMS WERE DUE TO FLUID OVERLOAD AND THAT THE LASIX THAT WAS GIVEN TO HER HELPED HER SYMPTOMS WELL THE BIPAP AND THE GOAL OF CARE WITH HOSPICE IS NOT FOR CURATIVE TREATMENTS, BUT FOR COMFORT TUCKER TMENTS - KEEPING THE PT COMFORTABLE WITH THE UNDERSTANDING THAT WHAT WE ARE DOING IS NOT CURATIVE. THIS FIELD ADVISOR EXPLAINED THAT DURING THE PROCESS OF OFFERING COMFORT THAT THERE ARE TIMES THAT WE WILL ALSO CAUSE INADVERTENT HARM TO ANOTHER ORGAN SYSTEM - LIKE LASIX FOR FLUID OVERLOAD WHICH CAUSES RENAL COMPROMISE. THE PT AND HER AVAILABLE FAMILY VOCALIZED UNDERSTANDING. OUR PLAN WILL BE FOR THE PATIENT TO BE ON COMFORT CARE/HOSPICE IN THE HOSPITAL, WITH THE ULTIMATE PLAN BEING TRANSITION TO HOME IF SHE SURVIVES TO TRANSITION TO HOME. TONIGHT WE WILL GIVE ATIVAN INTENSOL TO SEE HOW THIS IS TOLERATED BY THE PATIENT PART OF HER AIR HUNGER WAS ALSO ANXIETY OVER HER SHORTNESS OF BREATH. ACUTE RENAL FAILURE - FAMILY REQUESTED TO CHECK RENAL FUNCTION TOMORROW MORNING. CORONARY ARTERY DISEASE WITH HX OF INTERVENTION DIABETES MELLITUS - PT ON HOME REGIMEN - MONITOR FSBS HYPERLIPIDEMIA CHRONIC ATRIAL FIBRILLATION ON ANTICOAGULATION - PT ON ROMAINE RIVERA MD Aug 31, 2021 09:23
[2021-08-31] MEDS: FAMOTIDINE 20 MG (PEPCID) TABLET PO SCH (09:43)
[2021-08-31] MEDS: APIXABAN 2.5 MG (ELIQUIS) TABLET PO SCH ×2 (09:43→21:04)
[2021-08-31] MEDS: SENNA W/DOCUSATE (SENOKOT S) TABLET PO SCH ×2 (09:43→09:49)
[2021-08-31] MEDS: DICLOFENAC 1% GEL 100 GM (VOLTAREN) TUBE TOP SCH ×4 (09:44→21:05)
[2021-08-31] MEDS: SIMETHICONE 80 MG (MYLICON) CHEW PO SCH ×3 (09:44→21:05)
[2021-08-31] MEDS: DOCUSATE SODIUM 100 MG (COLACE) CAP PO SCH ×3 (09:44→21:04)
[2021-08-31] MEDS: glipiZIDE XL 10 MG (GLUCOTROL XL) TAB PO SCH (09:44)
[2021-08-31] MEDS: ACETAMINOPHEN 500 MG TAB (TYLENOL) PO PRN ×2 (10:21→18:46)
[2021-08-31 11:00] VITALS: BP 111/56
--- NOTE | 2021-08-31 11:46 | Progress Note - Cardiology ---
Cardiology SOAP Progress Note Subjective: More malaise and more shortness of breath since yesterday No cp or palp or syncope No n/v/d Objective: I&O/Vital Signs 08/31/21 08/31/21 08/31/21 08/31/21 00:37 01:50 02:05 02:40 Temp 36.6 Pulse 124 123 121 108 Resp 24 B/P (MAP) 123/60 (81) Pulse Ox 91 93 91 O2 Delivery Nasal Cannula NIV Bilevel NIV Bilevel O2 Flow Rate 10.00 40.00 08/31/21 08/31/21 08/31/21 08/31/21 04:21 06:38 06:50 07:42 Temp 36.0 36.6 Pulse 119 109 102 111 Resp 34 25 30 B/P (MAP) 136/74 (94) 130/60 (83) Pulse Ox 92 92 91 91 O2 Delivery Nasal Cannula NIV Bilevel NIV Bilevel O2 Flow Rate 10.00 40.00 08/31/21 08/31/21 10:53 11:00 Temp 36.0 Pulse 105 Resp 26 B/P (MAP) 111/56 (74) Pulse Ox 94 94 O2 Delivery Nasal Cannula High Flow N/C O2 Flow Rate 5.00 6.00 08/31/21 00:00 Intake Total 1160 ml Output Total 500 ml Balance 660 ml Weight (Pounds): 176 Weight (Ounces): 0.0 Weight (Calculated Kilograms): 79.577457 Constitutional: AAO x 3, well-developed, well-nourished Respiratory: No accessory muscle use, No respiratory distress; chest expansion is symmetric, chest is bilaterally symmetric, lungs clear to auscultation Cardiovascular: regular rate-rhythm; No JVD; S1 and S2, systolic murmur Gastrointestional: No tender; soft, round, audible bowel sounds Extremities: no lower extremity edema bilateral Neurologic/Psychiatric: grossly intact (moves all extremities) Skin: No rash on exposed areas, No ulcerations on exposed areas Results/Procedures: Labs Laboratory Tests 08/30/21 15:56: Glucometer 232H 08/30/21 20:32: Glucometer 153H 08/31/21 05:35: Glucometer 209H 08/31/21 10:58: Glucometer 162H Microbiology 08/26/21 Blood Culture - Preliminary, Resulted No growth 08/26/21 Urine Culture - Final, Complete NO GROWTH Laboratory Tests 08/30/21 05:53 08/30/21 08:10 A/P: Assessment: Chronic cor pulmonale, probably related to hypovent/sleep apnea syndrome and restrictive lung disease - Echo on 08/27/21: mod conc LVH, LVEF 50-55%, grade 1 beasley dysfunction, cor pulmonale with PASP 45-50 mmHg, mod MAC, mild , LA enlargement Chronic, intermittent diastolic CHF FREDY - 2, probably due to ATN due to hypotension due to meds and due to volume depletion due to diuretics, improved with hydration CKD - 2 to 3, due to diabetic nephropathy Constipation - management per medical services Back pain - management per medical services SSS and PAF: - Holter of 02/25/20: predominant rhythm is A Fib, avg heart rate 71 bpm, isolated and coupled PVCs PVC burden 1.2%), no significant fede Normal TSH : - 02/19/20: 1.42 (normal) CAD with a history of coronary artery bypass surgery. - Last cardiac catheterization was on 03/31/2013. There was severe [place] coronary artery disease. There was a widely patent left internal mammary artery graft to the distal left anterior descending. There was a widely patent saphenous vein graft to an obtuse marginal of the left circumflex. It was severely diseased saphenous vein graft to distal right coronary. It had 99% ostial/proximal stenosis which was successfully stented with Promus element 3.5 x 12 mm stent with good results. - MPI of 02/16/20: basal myocardial infarction w/o ischemia and with local basal inf hypokinesis to akinesis Hypertension: - essential, with a component of white coat, currently controlled HLD: - well controlled on therapy with atorvastatin, being followed by her PCP. Chronic limitation of ambulation: - due to chronic R foot eversion following trauma in , and chronic joint and back discomfort. DM 2: - managed by PCP Carotid dz: - Mild bilateral carotid plaque without evidence of hemodynamic significance, per ultrasound of 02/23/19 Abnormal ECG: - ECG 02/19/19: NSR, LVH with repol abn, LAFB Plan: Complex management due to multiple comorbidities She does have some fluid retention/swelling, but it does not appear to be due L heart failure. It appears to be due to chronic cor pulmonale fore reasons noted above. Diuretic have resulted in hypotension and renal failure Because of continuing clinical deterioration, prognosis does not appear good I had a detailed discussion with patient's daughter. I also discussed cardiac issues with Dr Aviles this am. Agree with Hospice CANDIDO GUERRA MD FACP FAC CCDS Aug 31, 2021 11:46
[2021-08-31 15:58] VITALS: BP 104/53
[2021-08-31] MEDS: MICONAZOLE 2% POWDER (DESENEX AF) 90 GM TOP SCH ×2 (17:47→21:05)
[2021-08-31] MEDS ORDERED: BISACODYL 10 MG SUPP (DULCOLAX) PR PRN (18:00)
[2021-08-31] MEDS ORDERED: ONDANSETRON 4 MG/2 ML (SDV) Z0FRAN IVP PRN (18:00)
[2021-08-31] MEDS ORDERED: RT-ALBUTEROL/IPRATROPIUM 3 ML (DUONEB) VIAL INH PRN (18:00)
[2021-08-31] MEDS ORDERED: LORazepam INJ 2 MG/ML (ATIVAN) VIAL IVP PRN (18:00)
[2021-08-31] MEDS ORDERED: ACETAMINOPHEN 650 MG SUPP (TYLENOL) PR PRN (18:00)
[2021-08-31] MEDS ORDERED: SALIVA STIMULANT MOUTH SPRAY (BIOTENE) 1.5 OZ MM PRN (18:00)
[2021-08-31] MEDS ORDERED: ARTIFICAL TEARS 0.4 ML UNIT DOSE (REFRESH PLUS) OU PRN (18:00)
[2021-08-31] MEDS ORDERED: PROMETHAZINE INJ 25 MG/ML (PHENERGAN) AMP IVP PRN (18:00)
[2021-08-31 20:03] VITALS: BP 118/56
[2021-08-31] MEDS ORDERED: LORazepam ORAL CONCENTRATE 2 MG/ML 30 ML (ATIVAN) PO NR (21:00)
[2021-08-31] MEDS: SIMvastatin 10 MG (ZOCOR) TAB PO SCH (21:04)
[2021-09-01] MEDS: RT-ALBUTEROL SULF 2.5 MG/3 ML PRE-MIX VIAL INH SCH ×6 (02:44→21:41)
[2021-09-01] MEDS: inSUlin ASPART (NovoLOG) 1 UNIT/0.01 ML (CHARGE PER UNIT) SC SCH (06:00)
[2021-09-01] MEDS: PANTOPRAZOLE 40 MG (PROTONIX) TAB PO SCH (06:12)
[2021-09-01 06:16] LABS: POTASSIUM 5.5 MMOL/L (3.6-5.0)
[2021-09-01 06:17] LABS: CALCIUM 9.3 MG/DL (8.5-10.1)
[2021-09-01 06:22] LABS: CREATININE SERUM 1.1 MG/DL (0.60-1.30)
[2021-09-01] MEDS: glipiZIDE XL 10 MG (GLUCOTROL XL) TAB PO SCH (08:37)
[2021-09-01] MEDS: SIMETHICONE 80 MG (MYLICON) CHEW PO SCH ×3 (08:37→21:27)
[2021-09-01] MEDS: FAMOTIDINE 20 MG (PEPCID) TABLET PO SCH (08:37)
[2021-09-01] MEDS: APIXABAN 2.5 MG (ELIQUIS) TABLET PO SCH ×2 (08:37→21:27)
[2021-09-01] MEDS: DOCUSATE SODIUM 100 MG (COLACE) CAP PO SCH ×3 (08:37→21:27)
[2021-09-01] MEDS: SENNA W/DOCUSATE (SENOKOT S) TABLET PO SCH ×2 (08:37→21:27)
[2021-09-01] MEDS: DICLOFENAC 1% GEL 100 GM (VOLTAREN) TUBE TOP SCH ×4 (08:38→21:28)
[2021-09-01] MEDS: MICONAZOLE 2% POWDER (DESENEX AF) 90 GM TOP SCH ×4 (08:38→21:28)
[2021-09-01 08:55] VITALS: BP 118/56
--- NOTE | 2021-09-01 09:43 | Progress Note ---
Subjective Subjective Date Seen by Provider: Sep 01, 2021 Time Seen by Provider: 09:30 PT IS AN 86 Y/O FEMALE WHO IS KNOWN TO ME FROM CLINIC. SHE HAS ATRIAL FIBRILLATION, WEAKNESS, BACK PAIN, CHRONIC DEBILITY WITH CHRONIC OXYGEN DEPENDANCE. SHE REPORTS THAT SHE HAS NOT FELT LIKE SHE NEEDED BIPAP. HER DTR REPORTS THAT HER MOM APPEARS MORE COMFORTABLE TODAY. PT COMPLAINS OF NOT HEARING WELL, DTR WONDERING ABOUT WAX BUILD UP IN HER EARS. PT REPORTS THAT SHE SLEPT REALLY WELL LAST NIGHT Review of Systems General: No Chills, No Night Sweats; Fatigue, Malaise HEENT: Other (HEARING LOSS) Pulmonary: Dyspnea, Cough Gastrointestinal: No: Nausea, Vomiting Genitourinary: Other (WINN IN PLACE) Musculoskeletal: back pain Neurological: Weakness, Other (ANXIETY); No: Confusion Objective Exam Vital Signs Vital Signs Date Time Temp Pulse Resp B/P (MAP) Pulse Ox O2 Delivery O2 Flow Rate FiO2 09/01/21 08:55 36.9 116 44 86 09/01/21 08:00 Nasal Cannula 5.00 09/01/21 06:59 Nasal Cannula 6.00 09/01/21 02:45 86 Nasal Cannula 5.00 08/31/21 22:52 3.00 08/31/21 20:20 Nasal Cannula 5.00 08/31/21 20:03 36.9 116 22 118/56 (76) 90 High Flow N/C 5.00 08/31/21 18:40 93 Nasal Cannula 5.00 08/31/21 15:58 37.2 113 20 104/53 (70) 91 High Flow N/C 6.00 08/31/21 14:59 91 Nasal Cannula 5.00 08/31/21 11:00 36.0 105 26 111/56 (74) 94 High Flow N/C 6.00 08/31/21 10:53 94 Nasal Cannula 5.00 I & O 09/01/21 07:00 Intake Total 1337 ml Output Total 800 ml Balance 537 ml General Appearance: Chronically ill, Mild Distress (WITH INCREASED WORK OF BREATHING), Obese Eyes: Bilateral Eye Normal Inspection, Bilateral Eye PERRL, Bilateral Eye EOMI HEENT: PERRL/EOMI, Pharynx Normal, Other (WAX BUILD UP LEFT EAR, RIGHT EAR WITH MINIMAL WAX) Neck: Normal Inspection Respiratory: Chest Non Tender, Crackles (B/L) Cardiovascular: No Edema, No Murmur, Irregularly Irregular, Tachycardia Gastrointestinal: Normal Bowel Sounds, Non Tender, Soft Back: No CVA Tenderness Extremity: Normal Inspection, Non Tender, No Pedal Edema Neurologic/Psychiatric: Alert, Oriented x3, Normal Mood/Affect Skin: Normal Color, Warm/Dry Lymphatic: No Adenopathy Results Lab Laboratory Tests 08/31/21 10:58: Glucometer 162H 08/31/21 15:46: Glucometer 161H 09/01/21 05:35: Sodium Level 141, Potassium Level 5.5H, Chloride Level 108H, Carbon Dioxide Level 22, Anion Gap 11, Blood Urea Nitrogen 28H, Creatinine 1.10, Estimat Glomerular Filtration Rate 47, BUN/Creatinine Ratio 25, Glucose Level 195H, Calcium Level 9.3 Microbiology 08/26/21 Blood Culture - Final, Complete No growth 08/26/21 Urine Culture - Final, Complete NO GROWTH Assessment/Plan Assessment/Plan Assessment and Plan ACUTE RESPIRATORY FAILURE ACUTE RENAL FAILURE HYPOXIA FLUID OVERLOAD HYPERTENSION CORONARY ARTERY DISEASE WITH HX OF INTERVENTION DIABETES MELLITUS HYPERLIPIDEMIA CHRONIC ATRIAL FIBRILLATION ON ANTICOAGULATION ACUTE RESPIRATORY FAILURE - WITH FLUID OVERLOAD AND HYPOXIA - IMPROVED WITH DIURESIS, MONITOR SYMPTOMS, CONTINUE WITH CHRONIC OXYGEN THERAPY AT HOME 2-3 LITERS. - PLAN HAD BEEN FOR DC TO HOME, BUT WITH HER WORSENING PULMONARY STATUS AND WORSENING RENAL FUNCTION - PT KEPT IN HOSPITAL FAMILY MEETING SONAL - DISCUSSED WITH MULTIPLE FAMILY MEMBERS, SON, DTR, GRANDCHILDREN AND PT'S AT HER BEDSIDE. THEY ARE WORRIED THAT THEY DO NOT HAVE ENOUGH IN PLACE OR FAMILY READY TO CARE FOR THE PATIENT IN HER CURRENT STATE, THEY WOULD LIKE TO SEE PT'S FAMILY HAVE A BETTER PLAN FOR PROVIDING CARE FOR HER IN HER HOME. THE PATIENT IS ALSO SCARED OF GOING HOME AND POSSIBLY NEEDING THE BIPAP WHICH WAS PLACED ON HER LAST NIGHT AND "SAVED MY LIFE". ONE OF THE FAMILY MEMBERS ASKED WHAT WOULD HAVE HAPPENED IF SHE DID NOT HAVE THE BIPAP IN THE ROOM AND HER DTR ASKED "WHAT WOULD YOU DO, JUST LET HER ?" THIS GRIEVANCE AND APPEALS COORDINATOR ATTEMPTED TO ANSWER THE QUESTION - AND DID SO MULTIPLE TIMES IN DIFFERENT WAYS - EXPLAINING THAT PART OF HER SYMPTOMS WERE DUE TO FLUID OVERLOAD AND THAT THE LASIX THAT WAS GIVEN TO HER HELPED HER SYMPTOMS WELL THE BIPAP AND THE GOAL OF CARE WITH HOSPICE IS NOT FOR CURATIVE TREATMENTS, BUT FOR COMFORT TREATMENTS - KEEPING THE PT COMFORTABLE WITH THE UNDERSTANDING THAT WHAT WE ARE DOING IS NOT CURATIVE. THIS GRIEVANCE AND APPEALS COORDINATOR EXPLAINED THAT DURING THE PROCESS OF OFFERING COMFORT THAT THERE ARE TIMES THAT WE WILL ALSO CAUSE INADVERTENT HARM TO ANOTHER ORGAN SYSTEM - LIKE LASIX FOR FLUID OVERLOAD WHICH CAUSES RENAL COMPROMISE. THE PT AND HER AVAILABLE FAMILY VOCALIZED UNDERSTANDING. OUR PLAN WILL BE FOR THE PATIENT TO BE ON COMFORT CARE/HOSPICE IN THE HOSPITAL, WITH THE ULTIMATE PLAN BEING TRANSITION TO HOME IF SHE SURVIVES TO TRANSITION TO HOME. TONIGHT WE WILL GIVE ATIVAN INTENSOL TO SEE HOW THIS IS TOLERATED BY THE PATIENT PART OF HER AIR HUNGER WAS ALSO ANXIETY OVER HER SHORTNESS OF BREATH. ACUTE RENAL FAILURE - FAMILY REQUESTED TO CHECK RENAL FUNCTION TOMORROW MORNING. CORONARY ARTERY DISEASE WITH HX OF INTERVENTION DIABETES MELLITUS - PT ON HOME REGIMEN - MONITOR FSBS HYPERLIPIDEMIA CHRONIC ATRIAL FIBRILLATION ON ANTICOAGULATION - PT ON ROMAINE RIVERA MD Sep 01, 2021 09:43
[2021-09-01] MEDS: GLYCOPYRROLATE 0.2 MG/ML (ROBINUL) 2 ML VIAL IV PRN (09:44)
[2021-09-01] MEDS ORDERED: MINERAL OIL CONCENTRATE 99.9% 15 ML UDC TOP ONE (09:45)
[2021-09-01] MEDS ORDERED: FUROSEMIDE 40 MG/4 ML INJ (LASIX) IVP ONE (10:00)
[2021-09-01] MEDS: ACETAMINOPHEN 500 MG TAB (TYLENOL) PO PRN (21:27)
[2021-09-01] MEDS: LORazepam ORAL CONCENTRATE 2 MG/ML 30 ML (ATIVAN) PO PRN (21:27)
[2021-09-02] MEDS: RT-ALBUTEROL SULF 2.5 MG/3 ML PRE-MIX VIAL INH SCH ×6 (02:28→21:06)
[2021-09-02] MEDS: LORazepam ORAL CONCENTRATE 2 MG/ML 30 ML (ATIVAN) PO PRN ×6 (02:50→23:53)
[2021-09-02] MEDS: PANTOPRAZOLE 40 MG (PROTONIX) TAB PO SCH (06:54)
[2021-09-02] MEDS: DOCUSATE SODIUM 100 MG (COLACE) CAP PO SCH ×3 (08:30→20:58)
[2021-09-02] MEDS: SENNA W/DOCUSATE (SENOKOT S) TABLET PO SCH ×2 (08:30→20:58)
[2021-09-02] MEDS: GLYCOPYRROLATE 0.2 MG/ML (ROBINUL) 2 ML VIAL IV PRN ×4 (08:31→23:53)
[2021-09-02] MEDS: APIXABAN 2.5 MG (ELIQUIS) TABLET PO SCH ×2 (08:31→20:58)
[2021-09-02] MEDS: glipiZIDE XL 10 MG (GLUCOTROL XL) TAB PO SCH (08:31)
[2021-09-02] MEDS: FAMOTIDINE 20 MG (PEPCID) TABLET PO SCH (08:31)
[2021-09-02] MEDS: SIMETHICONE 80 MG (MYLICON) CHEW PO SCH ×3 (08:31→20:58)
[2021-09-02] MEDS: DICLOFENAC 1% GEL 100 GM (VOLTAREN) TUBE TOP SCH ×4 (08:33→20:59)
[2021-09-02] MEDS: MICONAZOLE 2% POWDER (DESENEX AF) 90 GM TOP SCH ×4 (08:39→20:59)
--- NOTE | 2021-09-02 11:18 | Progress Note ---
Subjective Date Seen by a Provider: Sep 02, 2021 Time Seen by a Provider: 11:13 Subjective/Events-last exam Fwup acute respiratory failure with fluid overload, acute renal failure, chronic atrial fibrillation, DMII, worsening debility. Family decided for comfort care measures with hope of patient going home. Patient up in chair. Objective Exam Vital Signs Date Time Temp Pulse Resp B/P (MAP) Pulse Ox O2 Delivery O2 Flow Rate FiO2 09/02/21 10:45 95 Nasal Cannula 6.00 09/02/21 08:00 High Flow N/C 6.00 09/02/21 07:15 Nasal Cannula 6.00 09/02/21 02:28 92 Nasal Cannula 6.00 09/01/21 21:41 93 Nasal Cannula 6.00 09/01/21 20:00 Nasal Cannula 5.00 09/01/21 18:47 93 Nasal Cannula 6.00 09/01/21 14:56 Nasal Cannula 6.00 I & O 09/02/21 07:00 Intake Total 740 ml Output Total 1150 ml Balance -410 ml Capillary Refill : Less Than 3 Seconds General Appearance: Mild Distress Respiratory: Respiratory Distress, Rhonci, Wheezing, Other (gurgling) Cardiovascular: Irregularly Irregular, Tachycardia Gastrointestinal: normal bowel sounds, non tender, soft Extremity: Non Tender, No Calf Tenderness, No Pedal Edema Neurologic/Psychiatric: Alert Skin: Warm/Dry Results Lab Microbiology 08/26/21 Blood Culture - Final, Complete No growth 08/26/21 Urine Culture - Final, Complete NO GROWTH Assessment/Plan Assessment/Plan Assess & Plan/Chief Complaint 1. Acute Respiratory Failure with Fluid Overload--on comfort care, RT did not give treatment due to tachycardia so will give her a dose of cardizem in case the A Fib with RVR is contributing to dyspnea and have RT come and do a neb treatment 2. Acute Renal Failure 3. Chronic Atrial Fibrillation with RVR--dose of cardizem po now to see if will help dyspnea 4. DMII 5. Worsening Debility--comfort care with hope that can go home with hospice JESSICA BRUNO DO Sep 02, 2021 11:18
[2021-09-03] MEDS: RT-ALBUTEROL SULF 2.5 MG/3 ML PRE-MIX VIAL INH SCH ×2 (02:18→05:51)
[2021-09-03] MEDS: LORazepam ORAL CONCENTRATE 2 MG/ML 30 ML (ATIVAN) PO PRN ×2 (02:42→05:21)
[2021-09-03] MEDS: GLYCOPYRROLATE 0.2 MG/ML (ROBINUL) 2 ML VIAL IV PRN ×3 (04:24→19:53)
[2021-09-03] MEDS: PANTOPRAZOLE 40 MG (PROTONIX) TAB PO SCH (07:01)
[2021-09-03] MEDS: DOCUSATE SODIUM 100 MG (COLACE) CAP PO SCH ×3 (09:22→19:56)
[2021-09-03] MEDS: FAMOTIDINE 20 MG (PEPCID) TABLET PO SCH (09:23)
[2021-09-03] MEDS: DICLOFENAC 1% GEL 100 GM (VOLTAREN) TUBE TOP SCH ×4 (09:23→19:57)
[2021-09-03] MEDS: MICONAZOLE 2% POWDER (DESENEX AF) 90 GM TOP SCH ×4 (09:23→19:57)
[2021-09-03] MEDS: SENNA W/DOCUSATE (SENOKOT S) TABLET PO SCH ×2 (09:23→19:56)
[2021-09-03] MEDS: glipiZIDE XL 10 MG (GLUCOTROL XL) TAB PO SCH (09:23)
[2021-09-03] MEDS: SIMETHICONE 80 MG (MYLICON) CHEW PO SCH ×3 (09:23→19:56)
[2021-09-03] MEDS: APIXABAN 2.5 MG (ELIQUIS) TABLET PO SCH ×2 (09:23→19:56)
[2021-09-03] MEDS ORDERED: ONDANSETRON 4 MG/2 ML (SDV) Z0FRAN IV PRN (10:00)
--- NOTE | 2021-09-03 10:07 | Progress Note ---
Subjective Date Seen by a Provider: Sep 03, 2021 Time Seen by a Provider: 10:04 Subjective/Events-last exam Fwup acute respiratory failure with fluid overload, acute renal failure, chronic atrial fibrillation, DMII, worsening debility. Family at bedside. Had very restless night. Objective Exam Vital Signs Date Time Temp Pulse Resp B/P (MAP) Pulse Ox O2 Delivery O2 Flow Rate FiO2 09/03/21 08:00 High Flow N/C 6.00 09/03/21 05:51 Nasal Cannula 6.00 09/03/21 02:18 Nasal Cannula 6.00 09/02/21 21:07 Nasal Cannula 6.00 09/02/21 20:55 High Flow N/C 6.00 09/02/21 18:20 Nasal Cannula 6.00 09/02/21 14:32 Nasal Cannula 6.00 09/02/21 10:45 95 Nasal Cannula 6.00 I & O 09/03/21 07:00 Intake Total 1025 ml Output Total 685 ml Balance 340 ml Capillary Refill : Less Than 3 Seconds General Appearance: No Apparent Distress Respiratory: Decreased Breath Sounds, Rhonci Cardiovascular: Systolic Murmur, Tachycardia Gastrointestinal: soft Extremity: Non Tender, No Calf Tenderness, No Pedal Edema Neurologic/Psychiatric: Other (sleeping, does open eyes to voice but no verbal response) Results Lab Microbiology 08/26/21 Blood Culture - Final, Complete No growth 08/26/21 Urine Culture - Final, Complete NO GROWTH Assessment/Plan Assessment/Plan Assess & Plan/Chief Complaint 1. Acute Respiratory Failure with Fluid Overload--on comfort care, still on oxygen for comfort and SVNS prn for comfort 2. Acute Renal Failure 3. Chronic Atrial Fibrillation with RVR--dose of cardizem po now to see if will help dyspnea 4. DMII 5. Worsening Debility--comfort care 6. Agitation/Restlessness--will change ativan intensol to IV lorazepam and add scopolamine patch JESSICA BRUNO DO Sep 03, 2021 10:07
[2021-09-03] MEDS ORDERED: HALOPERIDOL 5 MG/ML (HALDOL) VIAL IM PRN (10:15)
[2021-09-03] MEDS ORDERED: SCOPOLAMINE 1.5 MG (TRANSDERM-SCOP) PATCH TD NR (10:15)
[2021-09-03] MEDS: LORazepam INJ 2 MG/ML (ATIVAN) VIAL IVP PRN ×2 (13:53→19:53)
[2021-09-04] MEDS: LORazepam INJ 2 MG/ML (ATIVAN) VIAL IVP PRN (00:25)
--- NOTE | 2021-09-04 08:49 | Discharge Summary ---
Discharge Summary Date of Admission Aug 29, 2021 at 09:14 Date of Discharge Discharge Date: Aug 28, 2021 Discharge Time: 1100 Admission Diagnosis Acute on chronic respiratory failure with hypoxia Comfort Measures/ End of Life Care: Hospice (Hospital) [facility] discuss with: patient, family member (s) Plan: clarifying prognosis, identified end-of-life goals, developed treatment plan Cardiopulmonary Arrest: Cardiorespiratory Arrest Date of : Sep 04, 2021 Time of : 04:50 Discharge Diagnosis CARDIORESPIRATORY ARREST ACUTE RESPIRATORY FAILURE ACUTE RENAL FAILURE HYPOXIA FLUID OVERLOAD HYPERTENSION CORONARY ARTERY DISEASE WITH HX OF INTERVENTION DIABETES MELLITUS HYPERLIPIDEMIA CHRONIC ATRIAL FIBRILLATION ON ANTICOAGULATION (1) Acute on chronic respiratory failure with hypoxia Status: Acute (2) Fluid overload Status: Acute (3) (HFpEF) heart failure with preserved ejection fraction Status: Acute Qualifiers: Qualified Codes: I50.33 - Acute on chronic diastolic (congestive) heart failure (4) Obesity Status: Chronic (5) HTN (hypertension) Status: Chronic Qualifiers: Qualified Codes: I10 - Essential (primary) hypertension (6) CAD (coronary artery disease) Status: Chronic (7) NIDDM Status: Chronic ROMAINE ROSA MD Sep 04, 2021 08:49
[2021-09-06] MEDS ORDERED: SCOPOLAMINE PATCH REMOVAL TP NR (10:15)
== END 2021-09-04 08:30 | disposition expired | DRG 291 ==
LOC: EDUNIT# 10:01 → ER 10:02 → UNDOADMOB 11:45 → 4TH 11:45 → OBSVTOIN 08-29 09:14 → INTOOBSV 08-29 09:14 → UNDODISIN 09-04 08:30
PROVIDERS: ADMIT Internal Medicine; ATTEND Family Medicine
PROC: 5A0935A Assistance with Respiratory Ventilation, Less than 24 Consecutive Hours, High Flow/Velocity Cannula (ICD-10-PCS; 2021-08-29)
PROC: 5A09357 Assistance with Respiratory Ventilation, Less than 24 Consecutive Hours, Continuous Positive Airway Pressure (ICD-10-PCS; principal; 2021-08-31)
DX: I13.0 Hypertensive heart and chronic kidney disease with heart failure and stage 1 through stage 4 chronic kidney disease, or unspecified chronic kidney disease (principal); I50.33 Acute on chronic diastolic (congestive) heart failure; N17.0 Acute kidney failure with tubular necrosis; J96.21 Acute and chronic respiratory failure with hypoxia; E11.22 Type 2 diabetes mellitus with diabetic chronic kidney disease; N18.30 Chronic kidney disease, stage 3 unspecified; Z79.84 Long term (current) use of oral hypoglycemic drugs; Z66 Do not resuscitate; Z51.5 Encounter for palliative care; I46.9 Cardiac arrest, cause unspecified; E11.40 Type 2 diabetes mellitus with diabetic neuropathy, unspecified; I25.10 Atherosclerotic heart disease of native coronary artery without angina pectoris; E78.5 Hyperlipidemia, unspecified; E78.00 Pure hypercholesterolemia, unspecified; I48.0 Paroxysmal atrial fibrillation; K21.9 Gastro-esophageal reflux disease without esophagitis; M19.91 Primary osteoarthritis, unspecified site; E87.5 Hyperkalemia; I49.5 Sick sinus syndrome; I65.23 Occlusion and stenosis of bilateral carotid arteries; K59.00 Constipation, unspecified; H91.90 Unspecified hearing loss, unspecified ear; Z20.822 Contact with and (suspected) exposure to COVID-19; H54.7 Unspecified visual loss; I08.0 Rheumatic disorders of both mitral and aortic valves; Z99.81 Dependence on supplemental oxygen; Z87.01 Personal history of pneumonia (recurrent); Z88.5 Allergy status to narcotic agent; Z79.82 Long term (current) use of aspirin; Z95.5 Presence of coronary angioplasty implant and graft; Z95.1 Presence of aortocoronary bypass graft
CPT/HCPCS: 36415; 71045; 80048; 80053; 80061; 81000; 82150; 82550; 82553; 82947; 83605; 83690; 83735; 83874; 83880; 84132; 84145; 84484; 85025; 85379; 85610; 85652; 85730; 86141; 87040; 87088; 87636; 93005; 93041; 93306; 94640; 94660; 94760; G0378